=== PATIENT | male | born 1950 | race Caucasian/White ===

== ENCOUNTER 2018-01-17 10:37 | Emergency (ER) | payer SELFPAY ==
[2018-01-17 10:37] VITALS: BP 136/79; PULSE 108; RESP 26; TEMP 37.2; O2SAT 90; BMI 29.8
--- NOTE | 2018-01-17 10:57 | ED.VISSUMM ---
- ER Visit Summary Date of Service: 01/17/18 Chief Complaint: [] Runny nose and a harsh cough for about 4 days History of Present Illness: The patient is a 67 M [] hypertension, reports for 4 days she has had a copiously runny nose and a harsh cough no fever no chest pain no abdominal pain able to eat and drink no orthopnea or PND he denies history of [place] PE DVT or COPD although he does smoke he is really only on blood pressure medicine he has been doing fine at home Physical Examination: [] Very harsh dry cough here his nose is quite congested he is in no distress speaking full sentences when he is not coughing the throat is unremarkable the lungs are minimal wheezing diffusely but good excursion the heart tones are unremarkable the abdomen is soft and nontender he has around abdomen but nontender he is moving all 4 extremities no orthopnea PND or leg edema cyanosis clubbing or edema or logically he is awake and alert when he is not coughing clinically he looks well Test Results: [] Emergency Department Course and Treatment: [] This time of explained the patient we can do extensive evaluation with x-rays labs etc. EKG but he declined all that he was agreeable to a DuoNeb Afrin nasal spray, he feels well wants to go home, he will be discharged on Proventil inhaler Flonase Mucinex and to follow-up with his doctor and return for change in symptoms Treatment Plan: [] Disposition: [] Home stable Impression: [] Acute URI with harsh cough This note was generated with [employer] dictation software. It may contain incorrect words, spelling, and punctuation that were not noted in review of the chart prior to signing ED Disposition - Plan for ED Patient: Chief Complaint: Shortness of Breath Referrals: Susana Ruiz, MARIANNE-C [Primary Care Provider] -
--- NOTE | 2018-01-17 10:58 | ED.DEP ---
ED Disposition - Plan for ED Patient: Chief Complaint: Shortness of Breath Instructions: ED Upper Resp Infec No Abx Tx, ED COPD Flare Prescriptions: Albuterol Inhaler [Ventolin Hfa] 2 puff INHALATION Q4H PRN PRN #1 inhaler PRN Reason: Wheezing Fluticasone 0.05% [Flonase Nasal [place]] 1 spray NASAL BID #1 bottle Guaifenesin [Mucinex] 1,200 mg PO BID #14 [id number].12hr Referrals: Susana Ruiz NP-C [Primary Care Provider] -
[2018-01-17 11:06] VITALS: PULSE 104; RESP 18
[2018-01-17] MEDS: Ipratropium/Albuterol Sulfate 3 ML AMPUL.NEB INHALATION (11:06)
[2018-01-17 11:34] VITALS: BP 140/78; PULSE 103; RESP 24; O2SAT 96
[2018-01-17] MEDS: Oxymetazoline 0.05% 1 SPRAY SPRAY.BTL 2 SPRAY NASAL (11:42)
== END 2018-01-17 11:50 | disposition home or self-care (01) ==
PROVIDERS: Emergency Provider Emergency Medicine; Family Provider Nurse Practitioner Primary Care; PCP Nurse Practitioner Primary Care
DX: J06.9 Acute upper respiratory infection, unspecified (principal); R05 Cough; F17.200 Nicotine dependence, unspecified, uncomplicated; I10 Essential (primary) hypertension; E11.9 Type 2 diabetes mellitus without complications; Z79.84 Long term (current) use of oral hypoglycemic drugs; Z79.899 Other long term (current) drug therapy
CPT/HCPCS: 94640; 99281

== ENCOUNTER 2018-05-11 14:49 | Observation (INO) | payer MEDICARE, OTHER, SELFPAY ==
[2018-05-11] VITALS (9 sets, daily range): BP systolic 121–164; BP diastolic 74–87; PULSE 65–95; RESP 18–20; TEMP 36.4–36.6; O2SAT 94–97; BMI 32.8; BMI 32.1
--- NOTE | 2018-05-11 15:00 | EKG12_ITS ---
Test Reason : Blood Pressure : / mmHG Vent. Rate : 083 BPM Atrial Rate : 083 BPM P-R Int : 132 ms QRS Dur : 104 ms QT Int : 374 ms P-R-T Axes : 058 046 056 degrees QTc Int : 439 ms Normal sinus rhythm Incomplete right bundle branch block Borderline ECG Confirmed by AKBAR OZUNA, MARINE ([id number]), business editor SEAN MANDUJANO ([id number]) on 05/13/2018 4:18:14 PM Referred By: EVARISTO Confirmed By:MARINE WEBBER MD
--- NOTE | 2018-05-11 15:04 | ED.DCSUM_ITS ---
- ER Visit Summary Date of Service: 05/11/18 Chief Complaint: Chest pain, nausea, diaphoresis History of Present Illness: The patient is a 67 M with history of diabetes, hypertension, hyperlipidemia, and smoking presents to the emergency department chest pain, nausea, diaphoresis. Normal state of health. He states that Gigi night, he began to feel sick. He states that he was very nauseated. He states he had a few bouts of vomiting. Since then, he has had intermittent bouts of chest pain. He describes it as a heaviness in his left chest that goes into his arm. He states that he does get very diaphoretic with it. He is unsure if it is made worse with exertion. He does get short of breath. He has had intermittent pain in his midepigastric area also. It does seem to be worse with food. He states he has never had symptoms like this before. He does not that he had fever. He has no documented history of coronary vascular disease. Physical Examination: Vital signs reviewed General: Well-nourished, well-developed Head: Normocephalic, atraumatic Eyes: Pupils equal and reactive, extraocular muscles intact Neck, supple, no lymphadenopathy Heart: Regular rate and rhythm Respiratory: No distress, clear bilaterally Abdomen: Soft, nontender, nondistended, no peritoneal signs Back: Nontender Extremities: Nontender, no edema, no cords Skin: Normal color no rash Neuro: Alert and oriented, no focal or lateralizing deficits Test Results: [] Emergency Department Course and Treatment: The patient presents to the emergency department with chest pain. He has multiple history of coronary vascular disease. His EKG does not show evidence of acute ischemia. Patient was given nitro and was totally pain-free. His screening labs including cardiac enzymes were unremarkable. His x-ray shows no volume overload or other dangerous process. He continues to remain pain-free. At this time, I do feel that the patient will require admission for cardiac workup. Patient was discussed with the hospitalist and will be admitted. Treatment Plan: [] Disposition: Admission Impression: 1. Chest pain This note was generated with [employer] dictation software. It may contain incorrect words, spelling, and punctuation that were not noted in review of the chart prior to signing ED Disposition - Plan for ED Patient: Chief Complaint: Chest Pain Referrals: Susana Ruiz NP-C [Primary Care Provider] -
--- NOTE | 2018-05-11 15:05 | RAD_ITS ---
STUDY: X-RAY CHEST REASON FOR EXAM: Male, 67 years old. Diaphoresis. Intermittent chest pain. TECHNIQUE: Single AP portable view of the chest. COMPARISON: Comparison is made with prior study February 14, 2017. FINDINGS: EKG electrodes are seen. The lungs are clear and expanded. There is no demonstrated pleural abnormality. Normal size heart. Normal mediastinum and kelli. Normal visualized pulmonary arteries. Normal visualized aortic arch and descending thoracic aorta. There are diffuse degenerative changes of the visualized thoracic spine. Normal visualized ribs, clavicles, and shoulders. There is no demonstrated abnormality of the visualized soft tissue structures of the upper abdomen. RAD/Chest 1 View (Portable) IMPRESSION: No acute abnormality is present. Electronically Signed: Doc Trimble MD at 15:38 EST Tel [phone], Service support ,
[2018-05-11] MEDS: Aspirin 81 MG TAB.CHEW 324 MG PO (15:16)
[2018-05-11] MEDS: Ondansetron 4 MG/2 ML Vial IV (15:19)
[2018-05-11] MEDS: 0.9% Normal Saline 1,000 ML 150 ML IV (15:20)
[2018-05-11 15:24] LABS: Absolute Neutrophil Count 4.2 X10^3/uL (2.0-7.7); Basophil# 0.17 X10^3/uL; Basophil% 2.1 % (0-1); Eosinophil# 0.25 X10^3/uL; Eosinophils% 3.1 % (0-5); Hematocrit 48.5 % (40-54); Hemoglobin 16.3 g/dl (13.0-16.5); Lymphocyte % 35.5 % (19-41); Mean Corp Hgb Conc 33.6 g/gl (32-36); Mean Corpuscular Hgb 30.5 pg (27.0-32.0); Mean Corpuscular Volume 90.8 fL (80-94); Mean Platelet Vol. 10.5 fl (6.2-12.0); Monocyte% 7.3 % (0-10); Neutrophil # 4.19 X10^3/uL (2.7-7.7); Neutrophil % 51.3 % (47-70); Platelet Count 241 K/mm3 (150-450); RBC Distribution Width CV 12.7 % (11.6-14.6); RBC Distribution Width SD 42.2 fl (35.1-43.9); Red Blood Count 5.34 M/mm3 (4.6-6.2); White Blood Count 8.2 K/mm3 (4.4-11.0)
[2018-05-11 15:32] LABS: POSITIVE COUNT NO; POSITIVE DIFFERENTIAL NO; POSITIVE MORPHOLOGY NO
[2018-05-11 15:40] LABS: AST(SGOT) 12 U/L (15-37); Alanine Aminotransfer ALT/SGPT 23 U/L (16-61); Albumin, Serum 3.9 g/dL (3.2-5.0); Alkaline Phosphatase 87 U/L (45-117); Anion Gap 7 (5-15); BUN 23 mg/dL (7-18); BUN/Creat Ratio 23.9 RATIO (10-20); Bilirubin, Direct 0.12 mg/dL (0.00-0.30); Calcium,Total 8.9 mg/dL (8.5-10.1); Chloride 104 mmol/L (98-107); Creatinine, Serum 0.96 mg/dL (0.70-1.30); EST Glomerular Filtration Rate 83 mL/min (>60); Est Glom Filt Rate - Afr Amer 100 mL/min (>60); Estimated Creatinine Clearance 69.23 ml/min; Glucose 213 mg/dL (74-106); Lipase 107 U/L (73-393); Potassium 3.6 mmol/L (3.5-5.1); Protein, Total 7.9 g/dL (6.4-8.2); Sodium Level 138 mmol/L (136-145)
--- NOTE | 2018-05-11 19:47 | EKG12_ITS ---
Test Reason : Blood Pressure : / mmHG Vent. Rate : 074 BPM Atrial Rate : 074 BPM P-R Int : 102 ms QRS Dur : 094 ms QT Int : 378 ms P-R-T Axes : 026 031 040 degrees QTc Int : 419 ms Sinus rhythm Incomplete right bundle branch block Borderline ECG Confirmed by AKBAR OZUNA, MARINE ([id number]), research editor SEAN MANDUJANO ([id number]) on 05/13/2018 3:34:45 PM Referred By: MISHA Confirmed By:MARINE WEBBER MD
--- NOTE | 2018-05-11 19:56 | HP.PCM_ITS ---
Problem List (1) COPD (chronic obstructive pulmonary disease) Status: Chronic (2) Diabetes mellitus type 2 in obese Status: Acute (3) Acute chest pain Status: Acute (4) Tobacco dependence Status: Chronic (5) Hyperglycemia, unspecified Status: Acute History of Present Illness Date of Admission: 05/11/18 Chief Complaint: Atypical chest pain The patient is a 67 year old M with history of diabetes mellitus type 2 on metformin, hypertension, dyslipidemia came to ER for atypical chest pain for last 2 days. Patient had a large meal on and then had nausea and vomiting only gastric type without GI bleed. After that, he had more pain and dyspeptic symptoms. On past Friday he felt epigastric and lower chest pain midsternal, radiating to back and numbness to both hands. Patient denies any exacerbating or relieving factor. Described chest pain as more like burning, la sting for about 15 seconds, intermittent with multiple episodes. He had associated symptoms of diaphoresis. He has chronic shortness of breath secondary to COPD. [] Had Lexiscan stress test done in February 2017 and was negative for stress- induced ischemia. In ED, chest x-ray showed no acute abnormality. EKG shows normal sinus rhythm with incomplete right bundle branch block, QRS 94 ms. Clinical Impression(s) from Imaging Studies Chest X-Ray 05/11/18 15:05 IMPRESSION: No acute abnormality is present. Past Medical History Past Medical History (Chronic Problems): Chronic Problems COPD (chronic obstructive pulmonary disease) (Chronic) Tobacco dependence (Chronic) Allergies morphine Allergy (Verified 05/11/18 14:50) Rash Home Medications: Ambulatory Orders Medication Instructions Recorded Albuterol Inhaler [Ventolin Hfa] 2 puff INHALATION Q4H PRN PRN #1 01/17/18 inhaler Atorvastatin Calcium [Lipitor] 20 mg PO QHS 01/17/18 Fluticasone 0.05% [Flonase Nasal 1 spray NASAL BID #1 bottle 01/17/18 [place]] Lisinopril [Zestril] 10 mg PO DAILY 01/17/18 Metformin HCl [Glucophage] 500 mg PO DAILY 01/17/18 Aspirin E.C. [Ecotrin] 81 mg PO DAILY 05/11/18 Erythromycin Base [Erythromycin] 1 applic LEFT EYE DAILY 05/11/18 Guaifenesin [Mucinex] 1,200 mg PO BID 05/11/18 Meloxicam [Mobic] 7.5 mg PO DAILY PRN PRN 05/11/18 Nitroglycerin 0.4 mg PO PRN PRN 05/11/18 Smoking Status: Current every day smoker Tobacco Use: Cigarettes - *Family History Maternal History Items: No pertinent history Paternal History Items: Stroke Sibling History Items: Cancer Review of Systems Constitutional: Denies: Chills, Fever, Weight Change HEENT: Denies: Head Aches, Sinus Congestion, Sinus Drainage Cardiovascular: Reports: Chest Pain. Denies: Palpitations Respiratory: Reports: Cough - Chronic COPD cough occasionally, Shortness of breath upon exertion. Denies: Shortness of breath at rest, Sputum production Gastrointestinal: Reports: Abdominal Pain, Nausea, Vomiting Genitourinary: Denies: Dysuria Musculoskeletal: Denies: Joint Pain, Joint Tenderness Skin: Denies: Rash, Wounds Neurological: Denies: Numbness, Tingling, Focal weakness Psychiatric: Denies: Anxiety, Depression, Homicidal Ideations, Suicidal Ideations Hematologic/ Lymphatic: Denies: Easy Bruising, Easy Bleeding VTE Information - Inpt Only VTE Present on Admission: No VTE Mechan Device Prophylaxis: None VTE Pharm Prophylaxis ordered?: Yes Patient Problems: Active and Suspected Problems Diabetes mellitus type 2 in obese (Acute) - Physical Exam General: Alert, Oriented x3, Cooperative HEENT: Atraumatic, PERRLA, EOMI, Normocephalic Neck: Supple, No JVD, Negative Carotid Bruits Lungs: No rales, Diminished - Air entry diminished bilaterally., Rhonchi - Bilateral fine expiratory rhonchi present Cardiovascular: Regular rate, Regular Rhythm, Normal S1, Normal S2, No murmurs Abdomen: Bowel Sounds Present, Soft, Non Tender, Non-Distended Extremities: No edema, Capillary Refill Less than 3 Seconds Skin: No rashes, No breakdown Musculoskeletal: No Tenderness to Palpation of Joints or Extremities, Arthritic Changes Neurological: Cranial nerves II-XII grossly intact Psych/Mental Status: Normal Affect, Appropriate Vital Signs Temp Pulse Resp BP Pulse Ox 97.9 F 74 20 H 121/74 H 95 05/11/18 17:16 05/11/18 19:17 05/11/18 17:24 05/11/18 17:16 05/11/18 17:16 Oxygen Delivery Method Room Air Weight: 198 lb 13.711 oz Body Mass Index (BMI) 32.1 Intake and Output for Last 24 Hours 05/09/18 05/10/18 05/11/18 23:59 23:59 23:59 Intake Total 240 / 240 Balance 240 / 240 Laboratory Tests Past 24 Hrs 05/11/18 05/11/18 05/11/18 15:20 15:20 18:53 WBC 8.2 RBC 5.34 Hgb 16.3 Hct 48.5 MCV 90.8 MCH 30.5 MCHC 33.6 RDW 12.7 RDW Differential 42.2 Plt Count 241 MPV 10.5 Immature Gran % (Auto) 0.700 Neut % (Auto) 51.3 Lymph % (Auto) 35.5 Irion % (Auto) 7.3 Eos % (Auto) 3.1 Baso % (Auto) 2.1 H Absolute Neuts (auto) 4.2 Absolute Lymphs (auto) 2.90 Total Counted Not Reportable Sodium 138 Potassium 3.6 Chloride 104 Carbon Dioxide 27.0 Anion Gap 7 BUN 23 H Creatinine 0.96 Estim Creat Clear Calc 69.23 Est GFR (MDRD) Af Amer 100 Est GFR (MDRD) Non-Af 83 BUN/Creatinine Ratio 23.9 H Glucose 213 H Calcium 8.9 Magnesium 2.0 Total Bilirubin 0.40 Direct Bilirubin 0.12 AST 12 L ALT 23 Alkaline Phosphatase 87 Troponin I < 0.015 Pending Total Protein 7.9 Albumin 3.9 Globulin 4.0 Lipase 107 Assessment/Plan All Active Problems Diabetes mellitus type 2 in obese (Acute) Acute chest pain (Acute) Hyperglycemia, unspecified (Acute) The patient is a 67 year old M with history of diabetes mellitus type 2 on metformin, hypertension, dyslipidemia came to ER for atypical chest pain for last 2 days. Patient had a large meal on and then had nausea and vomiting only gastric type without GI bleed. After that, he had more pain and dyspeptic symptoms. On past Friday he felt epigastric and lower chest pain midsternal, radiating to back and numbness to both hands. Patient denies any exacerbating or relieving factor. Described chest pain as more like burning, lasting for about 15 seconds, intermittent with multiple episodes. He had associated symptoms of diaphoresis. He has chronic shortness of breath secondary to COPD. [] Had Lexiscan stress test done in February 2017 and was negative for stress- induced ischemia. In ED, chest x-ray showed no acute abnormality. EKG shows normal sinus rhythm with incomplete right bundle branch block, QRS 94 ms. 1. Atypical chest pain probably dyspeptic symptoms/gastric in nature; rule out ACS: Patient is being admitted on PCU. Serial troponin enzymes. Repeat EKG. If troponin negative, Lexiscan nuclear stress test tomorrow morning. Continue baby aspirin, atorvastatin and lisinopril, nitro sublingual as needed for chest pain. 2. COPD: Patient is on albuterol inhaler, Mucinex at home. DuoNeb as needed. Not on home oxygen. Chest x-ray did not show acute abnormality. 3. Probably, acute gastroenteritis/indigestion about 3-4 days ago: Resolved. 4 Diabetes mellitus type 2: Glucose and BMP 213. A1c tomorrow a.m. Accu-Cheks before meals and at bedtime and cover with Humalog insulin. 5. Hypertension: Blood pressure is controlled. DVT prophylaxis: On Lovenox 40 minutes subcu daily. This note was generated with [employer] dictation software. Every effort was made to ensure accuracy, however computerized oscillograph technician mistakes may persist. clinical Impression(s) from Imaging Studies Chest X-Ray 05/11/18 15:05 IMPRESSION: No acute abnormality is present. Laboratory Results 05/11/18 15:20: WBC 8.2, RBC 5.34, Hgb 16.3, Hct 48.5, MCV 90.8, MCH 30.5, MCHC 33.6, RDW 12.7, RDW Differential 42.2, Plt Count 241, MPV 10.5, Immature Gran % (Auto) 0.700, Neut % (Auto) 51.3, Lymph % (Auto) 35.5, Irion % (Auto) 7.3, Eos % (Auto) 3.1, Baso % (Auto) 2.1 H, Absolute Neuts (auto) 4.2, Absolute Lymphs (auto) 2.90, Total Counted Not Reportable 05/11/18 15:20: Sodium 138, Potassium 3.6, Chloride 104, Carbon Dioxide 27.0, Anion Gap 7, BUN 23 H, Creatinine 0.96, Estim Creat Clear Calc 69.23, Est GFR (MDRD) Af Amer 100, Est GFR (MDRD) Non-Af 83, BUN/Creatinine Ratio 23.9 H, Glucose 213 H, Calcium 8.9, Magnesium 2.0, Total Bilirubin 0.40, Direct Bilirubin 0.12, AST 12 L, ALT 23, Alkaline Phosphatase 87, Troponin I < 0.015, Total Protein 7.9, Albumin 3.9, Globulin 4.0, Lipase 107 05/11/18 18:53: Troponin I < 0.015 Code Visit OBSV E&M: 99994 Initial observation care L3
[2018-05-11] MEDS: Enoxaparin 40 MG/0.4 ML Syringe SC (21:30)
[2018-05-11] MEDS: Atorvastatin Calcium 40 MG Tablet PO (21:30)
[2018-05-11 22:15] LABS: Bedside Glucose 129 mg/dL (70-110)
[2018-05-11] MEDS: 0.9% Normal Saline 1,000 ML 100 ML IV (23:41)
[2018-05-12] VITALS (7 sets, daily range): BP systolic 128–153; BP diastolic 73–86; PULSE 61–73; RESP 17–18; TEMP 36.3–36.7; O2SAT 94–98
[2018-05-12] MEDS: Aspirin E.C. 81 MG Tablet PO (05:38)
[2018-05-12] MEDS: Lisinopril 10 MG Tablet PO (05:38)
--- NOTE | 2018-05-12 05:55 | EKG12_ITS ---
Test Reason : AM EKG Blood Pressure : / mmHG Vent. Rate : 064 BPM Atrial Rate : 064 BPM P-R Int : 132 ms QRS Dur : 090 ms QT Int : 386 ms P-R-T Axes : 031 041 049 degrees QTc Int : 398 ms Normal sinus rhythm Normal ECG Confirmed by AKBAR OZUNA, MARINE ([id number]), magazine editor SEAN MANDUJANO ([id number]) on 05/13/2018 3:31:11 PM Referred By: DR CABRAL Confirmed By:MARINE WEBBER MD
[2018-05-12 07:00] LABS: Bedside Glucose 139 mg/dL (70-110)
[2018-05-12 07:03] LABS: Hematocrit 50.2 % (40-54); Hemoglobin 16.4 g/dl (13.0-16.5); Mean Corp Hgb Conc 32.7 g/gl (32-36); Mean Corpuscular Hgb 30.5 pg (27.0-32.0); Mean Corpuscular Volume 93.3 fL (80-94); Mean Platelet Vol. 10.2 fl (6.2-12.0); Platelet Count 228 K/mm3 (150-450); RBC Distribution Width SD 44.5 fl (35.1-43.9); Red Blood Count 5.38 M/mm3 (4.6-6.2); White Blood Count 7.6 K/mm3 (4.4-11.0)
[2018-05-12 07:12] LABS: Scan Indicated on CBC? Y/N NO
[2018-05-12 07:14] LABS: Anion Gap 5 (5-15); BUN 18 mg/dL (7-18); BUN/Creat Ratio 19.8 RATIO (10-20); Calcium,Total 8.5 mg/dL (8.5-10.1); Chloride 109 mmol/L (98-107); Creatinine, Serum 0.91 mg/dL (0.70-1.30); EST Glomerular Filtration Rate 89 mL/min (>60); Est Glom Filt Rate - Afr Amer 108 mL/min (>60); Estimated Creatinine Clearance 73.03 ml/min; Glucose 121 mg/dL (74-106); Potassium 4.5 mmol/L (3.5-5.1); Sodium Level 142 mmol/L (136-145)
[2018-05-12 07:26] LABS: Prothrombin Time (Protime)PT. 13.3 SECONDS (11.7-14.9)
[2018-05-12 07:27] LABS: Cholesterol 143 mg/dL (200); High Density Lipoprotein 39 mg/dL; Partial Thromboplast Time 30.5 Seconds (24.1-36.2); Thyroid Stim Hormone (TSH) 0.91 uIU/mL (0.358-3.74); Triglycerides 173 mg/dL; Very Low Density Lipoprotein 35 mg/dL (5-40)
[2018-05-12 07:57] LABS: Hemoglobin A1c 6.4 % (4.2-6.3)
[2018-05-12 11:41] LABS: Bedside Glucose 95 mg/dL (70-110)
--- NOTE | 2018-05-12 11:43 | STRESSREP ---
Stress Test Report Date: 05/12/2018 Procedure: Pharmacologic stress nuclear imaging study Indications: Chest pain Consent: Per the patient Procedure: The patient underwent pharmacologic (Regadenoson) evaluation with a peak heart rate of 97 beats per minute (62 predicted maximal heart rate) and a peak blood pressure of 136/82 mmHg. The baseline ECG demonstrated normal sinus rhythm. The peak pharmacologic ECG demonstrated no obvious ECG changes. There were no cardiac dysrhythmias pretest, during pharmacologic infusion, or recovery. There was no complaint of chest discomfort during pharmacologic infusion or recovery. The examination was discontinued secondary to completion of protocol. Impression: 1. Pharmacologic (Regadenoson) evaluation 2. Peak pharmacologic ECG with no obvious ECG changes. 3. There were no cardiac dysrhythmias pretest, during pharmacologic infusion, or recovery. 4. Nuclear images pending Myocardial perfusion imaging study: Technique: The patient was injected with 11.8 millicuries of technetium 99m Cardiolite and subsequently rest SPECT Cardiolite nuclear imaging was obtained in the horizontal long, vertical long, and short axis views. The patient underwent pharmacologic (Regadenoson) evaluation with a peak heart rate of 97 beats per minute (62 % percent predicted maximal heart rate) and a peak blood pressure of 136/82 mmHg. The patient was injected with 34.1 millicuries of technetium 99m Cardiolite and subsequently stress SPECT Cardiolite nuclear imaging was obtained in the horizontal long, vertical long, and short axis views. A gated Cardiolite study at peak stress was obtained. Interpretation: Rest and stress SPECT Cardiolite nuclear imaging status post realignment, normalization, and attenuation correction demonstrate area of extra cardiac/gastrointestinal tracer uptake and otherwise myocardial perfusion appearing within normal limits. There is end systolic thickening and brightening. The gated Cardiolite study demonstrates myocardial thickening and inward wall motion. The reported LVEF is 72 %. Impression: 1. Rest and stress SPECT Cardiolite nuclear imaging demonstrate relative uniform tracer uptake and myocardial perfusion appearing within normal limits. 2. The gated Cardiolite study reports an LVEF of 72 %. This note was generated with [employer] software. It may contain incorrect words, spelling, and punctuation that were not noted in checking the note before signing.
--- NOTE | 2018-05-12 11:47 | STRESSREP_ITS ---
Stress Test Report Date: 05/12/2018 Procedure: Pharmacologic stress nuclear imaging study Indications: Chest pain Consent: Per the patient Procedure: The patient underwent pharmacologic (Regadenoson) evaluation with a peak heart rate of 97 beats per minute (62 predicted maximal heart rate) and a peak blood pressure of 136/82 mmHg. The baseline ECG demonstrated normal sinus rhythm. The peak pharmacologic ECG demonstrated no obvious ECG changes. There were no cardiac dysrhythmias pretest, during pharmacologic infusion, or recovery. There was no complaint of chest discomfort during pharmacologic infusion or recovery. The examination was discontinued secondary to completion of protocol. Impression: 1. Pharmacologic (Regadenoson) evaluation 2. Peak pharmacologic ECG with no obvious ECG changes. 3. There were no cardiac dysrhythmias pretest, during pharmacologic infusion, or recovery. 4. Nuclear images pending Myocardial perfusion imaging study: Technique: The patient was injected with 11.8 millicuries of technetium 99m Cardiolite and subsequently rest SPECT Cardiolite nuclear imaging was obtained in the horizontal long, vertical long, and short axis views. The patient underwent pharmacologic (Regadenoson) evaluation with a peak heart rate of 97 beats per minute (62 % percent predicted maximal heart rate) and a peak blood pressure of 136/82 mmHg. The patient was injected with 34.1 millicuries of technetium 99m Cardiolite and subsequently stress SPECT Cardiolite nuclear imaging was obtained in the horizontal long, vertical long, and short axis views. A gated Cardiolite study at peak stress was obtained. Interpretation: Rest and stress SPECT Cardiolite nuclear imaging status post realignment, normalization, and attenuation correction demonstrate area of extra cardiac/gastrointestinal tracer uptake and otherwise myocardial perfusion appearing within normal limits. There is end systolic thickening and brightenin g. The gated Cardiolite study demonstrates myocardial thickening and inward wall motion. The reported LVEF is 72 %. Impression: 1. Rest and stress SPECT Cardiolite nuclear imaging demonstrate relative uniform tracer uptake and myocardial perfusion appearing within normal limits. 2. The gated Cardiolite study reports an LVEF of 72 %. This note was generated with [employer] software. It may contain incorrect words, spelling, and punctuation that were not noted in checking the note before signing.
--- NOTE | 2018-05-12 11:58 | DCINST_ITS ---
- Discharge Diagnoses Current Active Problems: Current Active and Chronic Problems COPD (chronic obstructive pulmonary disease) (Chronic) Diabetes mellitus type 2 in obese (Acute) You will use the following diet at home:: Calorie/Carbohydrate Controlled (specify 1200, 1400, etc) - 1800 guido Your food should be the consistency of: Regular Your liquids should be the consistency of: Regular/Thin Discharge Activity: Return to Normal Activity Weight Bearing Status: Full weight bearing Allergies/Adverse Reactions: Allergies morphine Allergy (Verified 05/11/18 14:50) Rash Medications to take at Discharge Albuterol Inhaler [Ventolin Hfa] 2 puff INHALATION Q4H PRN PRN #1 inhaler 01/17/18 Atorvastatin Calcium [Lipitor] 20 mg PO QHS 01/17/18 Fluticasone 0.05% [Flonase Nasal [place]] 1 spray NASAL BID #1 bottle 01/17/18 Lisinopril [Zestril] 10 mg PO DAILY 01/17/18 Metformin HCl [Glucophage] 500 mg PO DAILY 01/17/18 Aspirin E.C. [Ecotrin] 81 mg PO DAILY 05/11/18 Erythromycin Base [Erythromycin] 1 applic LEFT EYE DAILY 05/11/18 Guaifenesin [Mucinex] 1,200 mg PO BID 05/11/18 Meloxicam [Mobic] 7.5 mg PO DAILY PRN PRN 05/11/18 Nitroglycerin 0.4 mg PO PRN PRN 05/11/18 Primary Care Physician: Susana Ruiz NP-C [Primary Care Provider] - Please follow up with your Primary Care Physician in: in one week Test Results: Test results from this visit will be discussed in further detail at your follow- up appointment, if applicable.
[2018-05-12] MEDS: Fluticasone 0.05% 1 SPRAY NASAL.SRY NASAL (12:53)
[2018-05-12] MEDS: guaiFENesin 1,200 MG Tablet 1200 MG PO (12:54)
--- NOTE | 2018-05-14 14:35 | DS.PCM_ITS ---
Discharge Date and Diagnosis Date of Admission: 05/11/18 Date of Discharge: 05/12/18 - Primary Discharge Diagnosis #1 musculoskeletal chest pain #2 type 2 diabetes #3 hyperlipidemia #4 COPD - Secondary Discharge Diagnosis Chronic Problems COPD (chronic obstructive pulmonary disease) (Chronic) Tobacco dependence (Chronic) Hospital Course and Treatment Operations: None Procedures: Nuclear stress test Summary of Care Provided: The patient is a 67 year old M was seen in the emergency room at [facility] with a chief complaint of chest pain accompanied by diaphoresis and nausea and diaphoresis. Workup in the emergency room included cardiac enzymes which were unremarkable, chest x-ray showed no acute disease, the remainder of his labs were also unremarkable. EKG does not show any evidence of ischemic changes, he was in normal sinus rhythm. Patient was placed in observation status on PCU, serial cardiac enzymes were obtained and these remained normal, patient underwent a nuclear stress test which was negative for reversible ischemia. Physical exam on 05/12/18: On examination he appeared in good health and spirits. Vital signs as documented. Skin warm and dry and without overt rashes. Neck without JVD. Lungs clear. Heart exam notable for regular rhythm, normal sounds and absence of murmurs, rubs or gallops. Abdomen unremarkable and without evidence of organomegaly, masses, or abdominal aortic enlargement. Extremities nonedematous. Neuro: Cranial nerves II through XII are grossly intact, no focal motor deficits were noted. Psych: Patient was alert and oriented x3, he did not appear anxious or depressed. On 05/12/18, patient was seen and examined felt to be in stable condition for discharge home - Physical Exam Vital Signs Temp Pulse Resp BP Pulse Ox 97.4 F L 61 18 153/86 H 98 05/12/18 13:00 05/12/18 13:00 05/12/18 13:00 05/12/18 13:00 05/12/18 13:00 Oxygen Delivery Method Room Air Weight: 90.2 kg Body Mass Index (BMI) 32.1 Intake and Output for Last 24 Hours 05/12/18 05/13/18 05/14/18 23:59 23:59 23:59 Intake Total 1815 181 Balance 1815 Discharge Activity: Return to Normal Activity Weight Bearing Status: Full weight bearing Home Medications: Medications to take at Discharge Albuterol Inhaler [Ventolin Hfa] 2 puff INHALATION Q4H PRN PRN #1 inhaler 01/17/18 Atorvastatin Calcium [Lipitor] 20 mg PO QHS 01/17/18 Fluticasone 0.05% [Flonase Nasal [place]] 1 spray NASAL BID #1 bottle 01/17/18 Lisinopril [Zestril] 10 mg PO DAILY 01/17/18 Metformin HCl [Glucophage] 500 mg PO DAILY 01/17/18 Aspirin E.C. [Ecotrin] 81 mg PO DAILY 05/11/18 Erythromycin Base [Erythromycin] 1 applic LEFT EYE DAILY 05/11/18 Guaifenesin [Mucinex] 1,200 mg PO BID 05/11/18 Meloxicam [Mobic] 7.5 mg PO DAILY PRN PRN 05/11/18 Nitroglycerin 0.4 mg PO PRN PRN 05/11/18 Primary Care Physician: Susana Ruiz NP-C [Primary Care Provider] - Please follow up with your Primary Care Physician in: in one week Disposition: Home Minutes spent on discharge:: 32 Patient Condition:: Stable Medical Necessity - Tobacco Use Smoking Status: Current every day smoker Tobacco Use: Cigarettes Meaningful Use Info Meaningful Use Diagnoses (Choose all that apply): None applicable Code Visit OBSV E&M: 92575 Observation care discharge
--- OUTSIDE RECORDS SUMMARY | 2018-06-23 14:03 | XMS RPT_ITS ---
:1950 Author Organization OHIP Care Team Providers Name Role Phone AL VELIZ, MR. PRECIADO Attending Unavailable AL VELIZ, MR. PRECIADO Primary Care Unavailable GUIDO ALCALA, MS. MARIPOSA Sandoval Attending Unavailable AL VELIZ, MR. PRECIADO Primary Care Unavailable GUIDO ALCALA, MSGwyn Sandoval Attending Unavailable AL VELIZ, MR. PRECIADO Primary Care Unavailable YOMAIRA REESE Attending Unavailable AL VELIZ, MR. PRECIADO Primary Care Unavailable Samson Webber Attending Unavailable Misha, Ritesh Referring Unavailable Samson Webber Attending Unavailable Misha, Ritesh Referring Unavailable Latasha June Attending Unavailable Mariposa Ruiz MUTUEL DEPARTMENT MANAGER-C Primary Care Unavailable Mariposa Ruiz MUTUEL DEPARTMENT MANAGER-C Primary Care Unavailable Misha, Ritesh Admitting Unavailable Fermin Marin Attending Unavailable Misha, Ritesh Admitting Unavailable Misha, Ritesh Attending Unavailable Mariposa Ruiz MUTUEL DEPARTMENT MANAGER-C Primary Care Unavailable Misha, Ritesh Consulting Unavailable Misha, Ritesh Admitting Unavailable Fermin Marin Attending Unavailable Mariposa Ruiz MUTUEL DEPARTMENT MANAGER-C Primary Care Unavailable Tereletsky, Fermin Consulting Unavailable PROBLEMS PROBLEMS DATE TYPE CONDITION / CODE ATTENDING STATUS SOURCE 05/29/2018 Unknown R07.9 - Chest Samson Webber Active [facility] pain, unspecified Community / R07.9(ICD-10) Hospital Repository 05/29/2018 Unknown R07.89 - Other Samson Webber Active [facility] chest pain / Community R07.89(ICD-10) Hospital Repository 05/29/2018 Unknown I10 - Essential Samson Webber Active [facility] (primary) Community hypertension / Hospital I10(ICD-10) Repository PROCEDURES PROCEDURES No Procedure Records FoundRESULTS RESULTS 12 LEAD ELECTROCARDIOGRAM Observed: 05/15/2018 Status: F Source: [place] 9:27 AM [facility] REPOSITORY [facility] Cardiovascular Services [address] [place] [address] 12 Lead EKG 05/12/18 0543 MR#: [id number] Acct: [id number] Name: DOMINIK YEE Rep #: [id number] : 1950 67 From: Samson Webber MD Attending Dr: Fermin Marin DO Status: DIS YASMINE Ordering Dr: Ritesh Cabral MD Date: 05/12/18 Location: [facility] Sex: M C Admitted: 05/11/18 Test Reason : AM EKG Blood Pressure : / mmHG Vent. Rate : 064 BPM Atrial Rate : 064 BPM P-R Int : 132 ms QRS Dur : 090 ms QT Int : 386 ms P-R-T Axes : 031 041 049 degrees QTc Int : 398 ms Normal sinus rhythm Normal ECG Confirmed by SAMSON WEBBER MD ([id number]), assignment desk editor SEAN MANDUJANO ([id number]) on 05/13/2018 3:31:11 PM Referred By: DR CABRAL Confirmed By:SAMSON WEBBER MD 05/13/18 1531 Date Samson Webber MD CC: Mariposa CHACON; Fermin Marin DO; Ritesh Cabral MD Signed 12 LEAD ELECTROCARDIOGRAM Observed: 05/15/2018 Status: F Source: [place] 9:27 AM [facility] REPOSITORY [facility] Cardiovascular Services [address] [place] [address] 12 Lead EKG 05/11/18 1648 MR#: [id number] Acct: [id number] Name: DOMINIK YEE Rep #: [id number] : 1950 67 From: Samson Webber MD Attending Dr: Fermin Marin DO Status: DIS YASMINE Ordering Dr: Ritesh Cabral MD Date: 05/11/18 Location: [facility] Sex: M C Admitted: 05/11/18 Test Reason : Blood Pressure : / mmHG Vent. Rate : 074 BPM Atrial Rate : 074 BPM P-R Int : 102 ms QRS Dur : 094 ms QT Int : 378 ms P-R-T Axes : 026 031 040 degrees QTc Int : 419 ms Sinus rhythm Incomplete right bundle branch block Borderline ECG Confirmed by AKBAR OZUNA, SAMSON ([id number]), assignment desk editor SEAN MANDUJANO ([id number]) on 05/13/2018 3:34:45 PM Referred By: MISHA Confirmed By:SAMSON WEBBER MD 05/13/18 1534 Date Samson Webber MD CC: Mariposa CHACON; Fermin Marin DO; Ritesh Cabral MD Signed 12 LEAD ELECTROCARDIOGRAM Observed: 05/15/2018 Status: F Source: [place] 9:27 AM [facility] REPOSITORY [facility] Cardiovascular Services [address] [place] [address] 12 Lead EKG 05/11/18 1506 MR#: [id number] Acct: [id number] Name: DOMINIK YEE Rep #: [id number] : 1950 67 From: Samson Webber MD Attending Dr: Fermin Marin DO Status: DIS YASMINE Ordering Dr: Roger Kellogg MD Date: 05/11/18 Location: [facility] Sex: M C Admitted: 05/11/18 Test Reason : Blood Pressure : / mmHG Vent. Rate : 083 BPM Atrial Rate : 083 BPM P-R Int : 132 ms QRS Dur : 104 ms QT Int : 374 ms P-R-T Axes : 058 046 056 degrees QTc Int : 439 ms Normal sinus rhythm Incomplete right bundle branch block Borderline ECG Confirmed by AKBAR OZUNA, SAMSON ([id number]), assignment desk editor SEAN MANDUJANO ([id number]) on 05/13/2018 4:18:14 PM Referred By: EVARISTO Confirmed By:SAMSON WEBBER MD 05/13/18 1618 Date Samson Webber MD CC: Mariposa CHACON; Fermin Marin DO; Roger Kellogg MD Signed DISCHARGE SUMMARY Observed: 05/14/2018 Status: F Source: [place] 2:35 PM [facility] REPOSITORY [facility] Medical Records Department [address] [place] [address] Discharge Summary 05/14/18 1431 MR#: [id number] Acct: [id number] Name: DOMINIK YEE Rep #: [id number] : 1950 67 From: Fermin Marin DO PCP: Mariposa Tuttle Status: DIS YASMINE Y Location: [place] [address] Discharge Date and Diagnosis Date of Admission: 05/11/18 Date of Discharge: 05/12/18 - Primary Discharge Diagnosis #1 musculoskeletal chest pain #2 type 2 diabetes #3 hyperlipidemia #4 COPD - Secondary Discharge Diagnosis Chronic Problems COPD (chronic obstructive pulmonary disease) (Chronic) Tobacco dependence (Chronic) Hospital Course and Treatment Operations: None Procedures: Nuclear stress test Summary of Care Provided: The patient is a 67 year old M was seen in the emergency room at [facility] with a chief complaint of chest pain accompanied by diaphoresis and nausea and diaphoresis. Workup in the emergency room included cardiac enzymes which were unremarkable, chest x-ray showed no acute disease, the remainder of his labs were also unremarkable. EKG does not show any evidence of ischemic changes, he was in normal sinus rhythm. Patient was placed in observation status on U, serial cardiac enzymes were obtained and these remained normal, patient underwent a nuclear stress test which was negative for reversible ischemia. Physical exam on 05/12/18: On examination he appeared in good health and spirits. Vital signs as documented. Skin warm and dry and without overt rashes. Neck without JVD. Lungs clear. Heart exam notable for regular rhythm, normal sounds and absence of murmurs, rubs or gallops. Abdomen unremarkable and without evidence of organomegaly, masses, or abdominal aortic enlargement. Extremities nonedematous. Neuro: Cranial nerves II through XII are grossly intact, no focal motor deficits were noted. Psych: Patient was alert and oriented x3, he did not appear anxious or depressed. On 05/12/18, patient was seen and examined felt to be in stable condition for discharge home - Physical Exam Vital Signs Temp Pulse Resp BP Pulse Ox 97.4 F L 61 18 153/86 H 98 05/12/18 13:00 05/12/18 13:00 05/12/18 13:00 05/12/18 13:00 05/12/18 13:00 Oxygen Delivery Method Room Air Weight: 90.2 kg Body Mass Index (BMI) 32.1 Intake and Output for Last 24 Hours Intake Total 1816 / 1816 Balance 181 / 1816 Discharge Activity: Return to Normal Activity Weight Bearing Status: Full weight bearing Home Medications: Medications to take at Discharge Albuterol Inhaler [Ventolin Hfa] 2 puff INHALATION Q4H PRN PRN #1 inhaler 01/17/18 Atorvastatin Calcium [Lipitor] 20 mg PO QHS 01/17/18 Fluticasone 0.05% [Flonase Nasal [place]] 1 spray NASAL BID #1 bottle 01/17/18 Lisinopril [Zestril] 10 mg PO DAILY 01/17/18 Metformin HCl [Glucophage] 500 mg PO DAILY 01/17/18 Aspirin E.C. [Ecotrin] 81 mg PO DAILY 05/11/18 Erythromycin Base [Erythromycin] 1 applic LEFT EYE DAILY 05/11/18 Guaifenesin [Mucinex] 1,200 mg PO BID 05/11/18 Meloxicam [Mobic] 7.5 mg PO DAILY PRN PRN 05/11/18 Nitroglycerin 0.4 mg PO PRN PRN 05/11/18 Primary Care Physician: Mariposa Ruiz NP-C [Primary Care Provider] - Please follow up with your Primary Care Physician in: in one week Disposition: Home Minutes spent on discharge:: 32 Patient Condition:: Stable Medical Necessity - Tobacco Use Smoking Status: Current every day smoker Tobacco Use: Cigarettes Meaningful Use Info Meaningful Use Diagnoses (Choose all that apply): None applicable Code Visit OBSV EARLINE: 62992 Observation care discharge 05/14/18 1435 <Electronically signed by Fermin Marin DO> Date Fermin Marin DO Cosigner Signature (if applicable): Date CC: Mariposa CHACON; Fermin Marin DO Signed DISCHARGE INSTRUCTION Observed: 05/12/2018 Status: F Source: [place] 11:58 AM [facility] REPOSITORY [facility] Medical Records Department [address] [place] [address] Instructions for Home/Discharge Instructions 05/12/18 1157 MR#: [id number] Acct: [id number] Name: DOMINIK YEE Rep #: [id number] : 1950 67 From: Fermin Marin DO PCP: Mariposa Tuttle Status: ADM YASMINE - Discharge Diagnoses Current Active Problems: Current Active and Chronic Problems COPD (chronic obstructive pulmonary disease) (Chronic) Diabetes mellitus type 2 in obese (Acute) You will use the following diet at home:: Calorie/Carbohydrate Controlled (specify 1200, 1400, etc) - 1800 guido Your food should be the consistency of: Regular Your liquids should be the consistency of: Regular/Thin Discharge Activity: Return to Normal Activity Weight Bearing Status: Full weight bearing Allergies/Adverse Reactions: Allergies morphine Allergy (Verified 05/11/18 14:50) Rash Medications to take at Discharge Albuterol Inhaler [Ventolin Hfa] 2 puff INHALATION Q4H PRN PRN #1 inhaler 01/17/18 Atorvastatin Calcium [Lipitor] 20 mg PO QHS 01/17/18 Fluticasone 0.05% [Flonase Nasal [place]] 1 spray NASAL BID #1 bottle 01/17/18 Lisinopril [Zestril] 10 mg PO DAILY 01/17/18 Metformin HCl [Glucophage] 500 mg PO DAILY 01/17/18 Aspirin E.C. [Ecotrin] 81 mg PO DAILY 05/11/18 Erythromycin Base [Erythromycin] 1 applic LEFT EYE DAILY 05/11/18 Guaifenesin [Mucinex] 1,200 mg PO BID 05/11/18 Meloxicam [Mobic] 7.5 mg PO DAILY PRN PRN 05/11/18 Nitroglycerin 0.4 mg PO PRN PRN 05/11/18 Primary Care Physician: Mariposa Ruiz NP-C [Primary Care Provider] - Please follow up with your Primary Care Physician in: in one week Test Results: Test results from this visit will be discussed in further detail at your follow-up appointment, if applicable. 05/12/18 1158 <Electronically signed by Fermin Marin DO> Date Fermin Marin DO CC: Mariposa CHACON STRESS REPORT Observed: 05/12/2018 Status: F Source: [place] 11:47 AM [facility] REPOSITORY [facility] Cardiovascular Services [address] [place] [address] MR#: [id number] Acct: [id number] Name: DOMINIK YEE Rep #: [id number] : 1950 67 From: Samson Webber MD Primary Care: Mariposa Tuttle Status: ADM YASMINE Ordering Dr: Beatriz: Trey Ellis Stress Test Report Date: 05/12/2018 Procedure: Pharmacologic stress nuclear imaging study Indications: Chest pain Consent: Per the patient Procedure: The patient underwent pharmacologic (Regadenoson) evaluation with a peak heart rate of 97 beats per minute (62 predicted maximal heart rate) and a peak blood pressure of 136/82 mmHg. The baseline ECG demonstrated normal sinus rhythm. The peak pharmacologic ECG demonstrated no obvious ECG changes. There were no cardiac dysrhythmias pretest, during pharmacologic infusion, or recovery. There was no complaint of chest discomfort during pharmacologic infusion or recovery. The examination was discontinued secondary to completion of protocol. Impression: 1. Pharmacologic (Regadenoson) evaluation 2. Peak pharmacologic ECG with no obvious ECG changes. 3. There were no cardiac dysrhythmias pretest, during pharmacologic infusion, or recovery. 4. Nuclear images pending Myocardial perfusion imaging study: Technique: The patient was injected with 11.8 millicuries of technetium 99m Cardiolite and subsequently rest SPECT Cardiolite nuclear imaging was obtained in the horizontal long, vertical long, and short axis views. The patient underwent pharmacologic (Regadenoson) evaluation with a peak heart rate of 97 beats per minute (62 % percent predicted maximal heart rate) and a peak blood pressure of 136/82 mmHg. The patient was injected with 34.1 millicuries of technetium 99m Cardiolite and subsequently stress SPECT Cardiolite nuclear imaging was obtained in the horizontal long, vertical long, and short axis views. A gated Cardiolite study at peak stress was obtained. Interpretation: Rest and stress SPECT Cardiolite nuclear imaging status post realignment, normalization, and attenuation correction demonstrate area of extra cardiac/gastrointestinal tracer uptake and otherwise myocardial perfusion appearing within normal limits. There is end systolic thickening and brightening. The gated Cardiolite study demonstrates myocardial thickening and inward wall motion. The reported LVEF is 72 %. Impression: 1. Rest and stress SPECT Cardiolite nuclear imaging demonstrate relative uniform tracer uptake and myocardial perfusion appearing within normal limits. 2. The gated Cardiolite study reports an LVEF of 72 %. This note was generated with [employer] software. It may contain incorrect words, spelling, and punctuation that were not noted in checking the note before signing. 05/12/18 1147 <Electronically signed by Samson Webber MD> Date Samson Webber MD CC: Mariposa CHACON; Fermin Marin DO Date Dictated: 05/12/18 114 Date Transcribed: 05/12/181142 Railway Signalling Engineer: PM Signed BEDSIDE GLUCOSE Collected: 05/12/2018 Status: F Source: [place] 11:31 [facility] TYPE CODE TESTS RESULT OUT OF RANGE REFERENCE UNITS LAB L501.080 70-110 mg/dL Normal BEDSIDE GLU 95 Result Comment: MANAGEMENT OF PATIENT CARE PER NURSING PROTOCOL Performed By: #### L501.080 #### [facility] Point of Care [address] [place], [place] [address] CBC-COMPLETE BLOOD CNT Collected: 05/12/2018 Status: F Source: [place] NO DIFF 6:50 AM [facility] REPOSITORY TYPE CODE TESTS RESULT OUT OF RANGE REFERENCE UNITS LAB L100.1000 4.4-11.0 K/mm3 Normal WBC 7.6 LAB L100.1200 4.6-6.2 M/mm3 Normal RBC 5.38 LAB L100.1300 13.0-16.5 g/dl Normal HGB 16.4 LAB L100.1400 40-54 % Normal HCT 50.2 LAB L100.1500 80-94 fL Normal MCV 93.3 LAB L100.1600 27.0-32.0 pg Normal MCH 30.5 LAB L100.1700 32-36 g/gl Normal MCHC 32.7 LAB L100.1810 11.6-14.6 % Normal RDW CV 13.0 LAB L100.1820 35.1-43.9 fl High RDW SD 44.5 LAB L100.1900 150-450 K/mm3 Normal PLT 228 LAB L100.2000 6.2-12.0 fl Normal MPV 10.2 Performed By: #### L100.0500 #### [facility] [address] [place], [place], [id number] BASIC METABOLIC Collected: 05/12/2018 Status: F Source: [place] PROFILE (BMP) 6:50 AM [facility] REPOSITORY TYPE CODE TESTS RESULT OUT OF RANGE REFERENCE UNITS LAB L501.0100 74-106 mg/dL High GLU 121 Result Comment: Fasting Glucose result from 100 to 125 mg/dL suggests IMPAIRED HOMEOSTASIS per A.D.A. criteria. Please note revised GLUCOSE reference range effective 2017. LAB L501.1000 7-18 mg/dL Normal BUN 18 LAB L501.1100 0.70-1.30 mg/dL Normal CREAT,SERUM 0.91 Result Comment: The validity of the calculated GFR AND GFRAA in patients over 70 years has not been determined. Clinical correlation is essential. LAB L501.1110 >60 mL/min Normal EST GFR 89 Result Comment: Non- GFR Calc LAB L501.1115 >60 mL/min Normal EST GFR - AA 108 Result Comment: GFR Calc LAB L501.1255 ml/min Normal Estimated CRCL 73.03 LAB L501.1300 10-20 RATIO Normal BUN/CRE 19.8 LAB L501.2200 8.5-10 mg/dL Normal .1 CA 8.5 LAB L501.5300 136-14 mmol/L Normal 5 NA 142 LAB L501.5600 3.5-5. mmol/L Normal 1 K 4.5 LAB L501.5900 98-107 mmol/L High CL 109 LAB L501.6100 21.0-3 mmol/L Normal 2.0 CO2 28.0 LAB L501.6200 5-15 Normal GAP 5 Performed By: #### L500.2500, L300.3900, L300.4310 #### [facility] [address] [place], [place], [id number] PROTHROMBIN TIME W/INR Collected: 05/12/2018 Status: F Source: [place] 6:50 AM [facility] REPOSITORY TYPE CODE TESTS RESULT OUT OF RANGE REFERENCE UNITS LAB L300.4150 11.7-14.9 SECONDS Normal PROTIME 13.3 LAB L300.4200 Normal INR 1.0 Performed By: #### L500.2500, L300.3900, L300.4310 #### [facility] [address] [place], [place], [id number] PARTIAL THROMBOPLAST Collected: 05/12/2018 Status: F Source: [place] TIME 6:50 AM [facility] REPOSITORY TYPE CODE TESTS RESULT OUT OF RANGE REFERENCE UNITS LAB L300.4310 24.1-36.2 Seconds Normal PTT 30.5 Performed By: #### L500.2500, L300.3900, L300.4310 #### [facility] [address] [place], [place], [id number] LIPID PROFILE Collected: 05/12/2018 Status: F Source: [place] 6:50 AM [facility] REPOSITORY TYPE CODE TESTS RESULT OUT OF RANGE REFERENCE UNITS LAB L501.4900 200 mg/dL Normal CHOL 143 Result Comment: <200 mg/dL Desirable 200-240 mg/dL Borderline >240 mg/dL High Risk LAB L501.5000 mg/dL Normal TRIG 173 Result Comment: The drugs N-Acetylcysteine and Metamizole may falsely depress this assay. Serum Triglycerides Reference Interval Normal <150 mg/dL Borderline high 150 - 199 mg/dL High 200 - 499 mg/dL Very High > or = 500 mg/dL LAB L501.6400 mg/dL Low HDL 39 Result Comment: The drugs N-Acetylcysteine and Metamizole may falsely depress this assay. Reference Range HDL <40 mg/dL Low HDL Cholesterol HDL >or= 60 mg/dL High HDL Cholesterol LAB L501.6500 0-130 mg/dL Normal LDL 69 LAB L501.6600 5-40 mg/dL Normal VLDL 35 Performed By: #### L500.4100, L501.9520 #### [facility] [address] [place], [place], [id number] THYROID STIM HORMONE Collected: 05/12/2018 Status: F Source: [place] (TSH) 6:50 AM [facility] REPOSITORY TYPE CODE TESTS RESULT OUT OF RANGE REFERENCE UNITS LAB L501.9520 0.358-3.74 uIU/mL Normal TSH 0.91 Performed By: #### L500.4100, L501.9520 #### [facility] [address] [place], [place], [address] HEMOGLOBIN A1C Collected: 05/12/2018 Status: F Source: [place] 6:50 AM [facility] REPOSITORY TYPE CODE TESTS RESULT OUT OF RANGE REFERENCE UNITS LAB L501.9985 4.2-6.3 % High HGB A1C 6.4 Performed By: #### L501.9985 #### [facility] [address] [place], [place], [address] BEDSIDE GLUCOSE Collected: 05/12/2018 Status: F Source: [place] 6:18 AM [facility] REPOSITORY TYPE CODE TESTS RESULT OUT OF REFERENCE UNITS RANGE LAB L501.080 70-110 mg/dL High BEDSIDE GLU 139 Result Comment: MANAGEMENT OF PATIENT CARE PER NURSING PROTOCOL Performed By: #### L501.080 #### [facility] Point of Care [address] [place] [address] TROPONIN-I Collected: 05/11/2018 Status: F Source: [place] 9:43 PM [facility] REPOSITORY Order Comment: 'TROP' Serial specimen #1, #2 or #3: 3 TYPE CODE TESTS RESULT OUT OF RANGE REFERENCE UNITS LAB L501.4010 <0.045 ng/mL Normal < 0.015 TROPONIN-I Result Comment: TROPONIN-I EXPECTED VALUES <0.045 Negative 0.045 - 0.590 Consistent with Cardiac Damage > OR = 0.600 Critical Value Not every elevated troponin is indicative of DE. These values should be used with clinical judgement in examining the patient's clinical picture for diagnosis. To establish a diagnosis of DE versus myocardial injury, there must be a demonstrated rise and/or fall in the troponin values, in addition to ischemic symptoms, EKG changes, new regional wall motion abnormality, and/or angiographical evidence. PLEASE NOTE: REFERENCE RANGES EDITED 17 Performed By: #### L501.4010 #### [facility] [address] [place], [address] BEDSIDE GLUCOSE Collected: 05/11/2018 Status: F Source: [place] 9:25 PM [facility] REPOSITORY TYPE CODE TESTS RESULT OUT OF REFERENCE UNITS RANGE LAB L501.080 70-110 mg/dL High BEDSIDE GLU 129 Result Comment: MANAGEMENT OF PATIENT CARE PER NURSING PROTOCOL Performed By: #### L501.080 #### [facility] Point of Care [address] [place] [address] EMERGENCY DEPARTMENT Observed: 05/11/2018 Status: F Source: [place] SUMMARY 8:30 PM [facility] REPOSITORY [facility] Medical Records Department [address] [place] [address] Emergency Department Summary 05/11/18 1503 MR#: [id number] Acct: [id number] Name: DOMINIK YEE Rep #: [id number] : 1950 67 From: Roger Kellogg MD PCP: Mariposa Tuttle Status: ADM YASMINE - ER Visit Summary Date of Service: 05/11/18 Chief Complaint: Chest pain, nausea, diaphoresis History of Present Illness: The patient is a 67 M with history of diabetes, hypertension, hyperlipidemia, and smoking presents to the emergency department chest pain, nausea, diaphoresis. Normal state of health. He states that Friday night, he began to feel sick. He states that he was very nauseated. He states he had a few bouts of vomiting. Since then, he has had intermittent bouts of chest pain. He describes it as a heaviness in his left chest that goes into his arm. He states that he does get very diaphoretic with it. He is unsure if it is made worse with exertion. He does get short of breath. He has had intermittent pain in his midepigastric area also. It does seem to be worse with food. He states he has never had symptoms like this before. He does not that he had fever. He has no documented history of coronary vascular disease. Physical Examination: Vital signs reviewed General: Well-nourished, well-developed Head: Normocephalic, atraumatic Eyes: Pupils equal and reactive, extraocular muscles intact Neck, supple, no lymphadenopathy Heart: Regular rate and rhythm Respiratory: No distress, clear bilaterally Abdomen: Soft, nontender, nondistended, no peritoneal signs Back: Nontender Extremities: Nontender, no edema, no cords Skin: Normal color no rash Neuro: Alert and oriented, no focal or lateralizing deficits Test Results: [] Emergency Department Course and Treatment: The patient presents to the emergency department with chest pain. He has multiple history of coronary vascular disease. His EKG does not show evidence of acute ischemia. Patient was given nitro and was totally pain-free. His screening labs including cardiac enzymes were unremarkable. His x-ray shows no volume overload or other dangerous process. He continues to remain pain-free. At this time, I do feel that the patient will require admission for cardiac workup. Patient was discussed with the hospitalist and will be admitted. Treatment Plan: [] Disposition: Admission Impression: 1. Chest pain This note was generated with [employer] dictation software. It may contain incorrect words, spelling, and punctuation that were not noted in review of the chart prior to signing ED Disposition - Plan for ED Patient: Chief Complaint: Chest Pain Referrals: Mariposa Ruiz NP-C [Primary Care Provider] - What to do if you have Problems For any increased pain, shortness of breath, bleeding, nausea or vomiting, chest pain, or any unexpected problems, contact your Primary Care Provider. Call [facility] ([phone]) or report to the closest Emergency Room. Call 911 if necessary. 05/11/182029 <Electronically signed by Roger Kellogg MD> Date Roger Kellogg MD Cosigner Signature (If Indicated): Date CC: Mariposa CHACON HISTORY AND PHYSICAL Observed: 05/11/2018 Status: F Source: [place] EXAM 8:02 PM [facility] REPOSITORY [facility] Medical Records Department [address] [place] [address] History and Physical 05/11/18 1950 MR#: [id number] Acct: [id number] Name: DOMINIK YEE Rep #: [id number] : 1950 67 From: Ritesh Cabral MD PCP: Mariposa Tuttle Status: ADM YASMINE Y Location: [place] [address] Problem List (1) COPD (chronic obstructive pulmonary disease) Status: Chronic (2) Diabetes mellitus type 2 in obese Status: Acute (3) Acute chest pain Status: Acute (4) Tobacco dependence Status: Chronic (5) Hyperglycemia, unspecified Status: Acute History of Present Illness Date of Admission: 05/11/18 Chief Complaint: Atypical chest pain The patient is a 67 year old M with history of diabetes mellitus type 2 on metformin, hypertension, dyslipidemia came to ER for atypical chest pain for last 2 days. Patient had a large meal on and then had nausea and vomiting only gastric type without GI bleed. After that, he had more pain and dyspeptic symptoms. On past Friday he felt epigastric and lower chest pain midsternal, radiating to back and numbness to both hands. Patient denies any exacerbating or relieving factor. Described chest pain as more like burning, lasting for about 15 seconds, intermittent with multiple episodes. He had associated symptoms of diaphoresis. He has chronic shortness of breath secondary to COPD. [] Had Lexiscan stress test done in February 2017 and was negative for stress-induced ischemia. In ED, chest x-ray showed no acute abnormality. EKG shows normal sinus rhythm with incomplete right bundle branch block, QRS 94 ms. Clinical Impression(s) from Imaging Studies Chest X-Ray 05/11/18 15:05 IMPRESSION: No acute abnormality is present. Past Medical History Past Medical History (Chronic Problems): Chronic Problems COPD (chronic obstructive pulmonary disease) (Chronic) Tobacco dependence (Chronic) Allergies morphine Allergy (Verified 05/11/18 14:50) Rash Home Medications: Ambulatory Orders Medication Instructions Recorded Smoking Status: Current every day smoker Tobacco Use: Cigarettes - *Family History Maternal History Items: No pertinent history Paternal History Items: Stroke Sibling History Items: Cancer Review of Systems Constitutional: Denies: Chills, Fever, Weight Change HEENT: Denies: Head Aches, Sinus Congestion, Sinus Drainage Cardiovascular: Reports: Chest Pain. Denies: Palpitations Respiratory: Reports: Cough - Chronic COPD cough occasionally, Shortness of breath upon exertion. Denies: Shortness of breath at rest, Sputum production Gastrointestinal: Reports: Abdominal Pain, Nausea, Vomiting Genitourinary: Denies: Dysuria Musculoskeletal: Denies: Joint Pain, Joint Tenderness Skin: Denies: Rash, Wounds Neurological: Denies: Numbness, Tingling, Focal weakness Psychiatric: Denies: Anxiety, Depression, Homicidal Ideations, Suicidal Ideations Hematologic/ Lymphatic: Denies: Easy Bruising, Easy Bleeding VTE Information - Inpt Only VTE Present on Admission: No VTE Mechan Device Prophylaxis: None VTE Pharm Prophylaxis ordered?: Yes Patient Problems: Active and Suspected Problems Diabetes mellitus type 2 in obese (Acute) - Physical Exam General: Alert, Oriented x3, Cooperative HEENT: Atraumatic, PERRLA, EOMI, Normocephalic Neck: Supple, No JVD, Negative Carotid Bruits Lungs: No rales, Diminished - Air entry diminished bilaterally., Rhonchi - Bilateral fine expiratory rhonchi present Cardiovascular: Regular rate, Regular Rhythm, Normal S1, Normal S2, No murmurs Abdomen: Bowel Sounds Present, Soft, Non Tender, Non-Distended Extremities: No edema, Capillary Refill Less than 3 Seconds Skin: No rashes, No breakdown Musculoskeletal: No Tenderness to Palpation of Joints or Extremities, Arthritic Changes Neurological: Cranial nerves II-XII grossly intact Psych/Mental Status: Normal Affect, Appropriate Vital Signs Temp Pulse Resp BP Pulse Ox 97.9 F 74 20 H 121/74 H 95 05/11/18 17:16 05/11/18 19:17 05/11/18 17:24 05/11/18 17:16 05/11/18 17:16 Oxygen Delivery Method Room Air Weight: 198 lb 13.711 oz Body Mass Index (BMI) 32.1 Intake and Output for Last 24 Hours Intake Total 240 / 240 Balance 240 / 240 Laboratory Tests Past 24 Hrs Assessment/Plan All Active Problems Diabetes mellitus type 2 in obese (Acute) Acute chest pain (Acute) Hyperglycemia, unspecified (Acute) The patient is a 67 year old M with history of diabetes mellitus type 2 on metformin, hypertension, dyslipidemia came to ER for atypical chest pain for last 2 days. Patient had a large meal on and then had nausea and vomiting only gastric type without GI bleed. After that, he had more pain and dyspeptic symptoms. On past Friday he felt epigastric and lower chest pain midsternal, radiating to back and numbness to both hands. Patient denies any exacerbating or relieving factor. Described chest pain as more like burning, lasting for about 15 seconds, intermittent with multiple episodes. He had associated symptoms of diaphoresis. He has chronic shortness of breath secondary to COPD. [] Had Lexiscan stress test done in February 2017 and was negative for stress-induced ischemia. In ED, chest x-ray showed no acute abnormality. EKG shows normal sinus rhythm with incomplete right bundle branch block, QRS 94 ms. 1. Atypical chest pain probably dyspeptic symptoms/gastric in nature; rule out ACS: Patient is being admitted on PCU. Serial troponin enzymes. Repeat EKG. If troponin negative, Lexiscan nuclear stress test tomorrow morning. Continue baby aspirin, atorvastatin and lisinopril, nitro sublingual as needed for chest pain. 2. COPD: Patient is on albuterol inhaler, Mucinex at home. DuoNeb as needed. Not on home oxygen. Chest x-ray did not show acute abnormality. 3. Probably, acute gastroenteritis/indigestion about 3-4 days ago: Resolved. 4 Diabetes mellitus type 2: Glucose and BMP 213. A1c tomorrow a.m. Accu-Cheks before meals and at bedtime and cover with Humalog insulin. 5. Hypertension: Blood pressure is controlled. DVT prophylaxis: On Lovenox 40 minutes subcu daily. This note was generated with The [employer] dictation software. Every effort was made to ensure accuracy, however computerized customer liaison mistakes may persist. clinical Impression(s) from Imaging Studies Chest X-Ray 05/11/18 15:05 IMPRESSION: No acute abnormality is present. Laboratory Results 05/11/18 15:20: WBC 8.2, RBC 5.34, Hgb 16.3, Hct 48.5, MCV 90.8, MCH 30.5, MCHC 33.6, RDW 12.7, RDW Differential 42.2, Plt Count 241, MPV 10.5, Immature Gran % (Auto) 0.700, Neut % (Auto) 51.3, Lymph % (Auto) 35.5, [place] % (Auto) 7.3, Eos % (Auto) 3.1, Baso % (Auto) 2.1 H, Absolute Neuts (auto) 4.2, Absolute Lymphs (auto) 2.90, Total Counted Not Reportable 05/11/18 15:20: Sodium 138, Potassium 3.6, Chloride 104, Carbon Dioxide 27.0, Anion Gap 7, BUN 23 H, Creatinine 0.96, Estim Creat Clear Calc 69.23, Est GFR (MDRD) Af Amer 100, Est GFR (MDRD) Non-Af 83, BUN/Creatinine Ratio 23.9 H, Glucose 213 H, Calcium 8.9, Magnesium 2.0, Total Bilirubin 0.40, Direct Bilirubin 0.12, AST 12 L, ALT 23, Alkaline Phosphatase 87, Troponin I < 0.015, Total Protein 7.9, Albumin 3.9, Globulin 4.0, Lipase 107 05/11/18 18:53: Troponin I < 0.015 Code Visit OBSV E AND M: [id number] Initial observation care L3 05/11/182001 <Electronically signed by Ritesh Cabral MD> Date Ritesh Cabral MD Cosigner Signature: Date (if applicable) CC: Mariposa Ruiz MUTUEL DEPARTMENT MANAGER-C; Ritesh Cabral MD Signed CBC W/DIFF, AUTOMATED Collected: 05/11/2018 Status: F Source: [place] 3:20 PM [facility] REPOSITORY TYPE CODE TESTS RESULT OUT OF RANGE REFERENCE UNITS LAB L100.1000 4.4-11.0 K/mm3 Normal WBC 8.2 LAB L100.1200 4.6-6.2 M/mm3 Normal RBC 5.34 LAB L100.1300 13.0-16.5 g/dl Normal HGB 16.3 LAB L100.1400 40-54 % Normal HCT 48.5 LAB L100.1500 80-94 fL Normal MCV 90.8 LAB L100.1600 27.0-32.0 pg Normal MCH 30.5 LAB L100.1700 32-36 g/gl Normal MCHC 33.6 LAB L100.1810 11.6-14.6 % Normal RDW CV 12.7 LAB L100.1820 35.1-43.9 fl Normal RDW SD 42.2 LAB L100.1900 150-450 K/mm3 Normal PLT 241 LAB L100.2000 6.2-12.0 fl Normal MPV 10.5 LAB L100.2100 47-70 % Normal NEUT% 51.3 LAB L100.2200 19-41 % Normal LY% 35.5 LAB L100.2300 0-10 % Normal MONO% 7.3 LAB L100.2400 0-5 % Normal EO% 3.1 LAB L100.2500 0-1 % High BASO% 2.1 LAB L100.2550 0.0-0.9 % Normal IM GRAN % 0.700 Result Comment: IG% - Immature Granulocytes (promyelocytes, myelocytes and metamyelocytes) > 1% indicates that a LEFT SHIFT is Present. LAB L100.2620 2.0-7.7 X10 3/uL Normal Absolute Neut 4.2 LAB L100.2720 0.83-4.51 X10 3/ul Normal Absolute Lymph 2.90 Performed By: #### L100.0100 #### [facility] [address] [place], [address] BASIC METABOLIC Collected: 05/11/2018 Status: F Source: [place] PROFILE (BMP) 3:20 PM [facility] REPOSITORY TYPE CODE TESTS RESULT OUT OF RANGE REFERENCE UNITS LAB L501.0100 74-106 mg/dL High GLU 213 Result Comment: Glucose result greater than or equal to 200 mg/dL suggests DIABETES MELLITUS per A.D.A. criteria. Please note revised GLUCOSE reference range effective 2017. LAB L501.1000 7-18 mg/dL High BUN 23 LAB L501.1100 0.70-1.30 mg/dL Normal CREAT,SERUM 0.96 Result Comment: The validity of the calculated GFR AND GFRAA in patients over 70 years has not been determined. Clinical correlation is essential. LAB L501.1110 >60 mL/min Normal EST GFR 83 Result Comment: Non- GFR Calc LAB L501.1115 >60 mL/min Normal EST GFR - AA 100 Result Comment: GFR Calc LAB L501.1255 ml/min Normal Estimated CRCL 69.23 LAB L501.1300 10-20 RATIO High BUN/CRE 23.9 LAB L501.2200 8.5-10 mg/dL Normal .1 CA 8.9 LAB L501.5300 136-14 mmol/L Normal 5 NA 138 LAB L501.5600 3.5-5. mmol/L Normal 1 K 3.6 LAB L501.5900 98-107 mmol/L Normal CL 104 LAB L501.6100 21.0-3 mmol/L Normal 2.0 CO2 27.0 LAB L501.6200 5-15 Normal GAP 7 Performed By: #### L500.2500, L500.3400, L501.2450, L501.4010, L501.5200 #### [facility] [address] [place], [address] LIVER PROFILE Collected: 05/11/2018 Status: F Source: [place] 3:20 PM [facility] REPOSITORY TYPE CODE TESTS RESULT OUT OF RANGE REFERENCE UNITS LAB L501.1500 6.4-8.2 g/dL Normal T PROT 7.9 LAB L501.1800 3.2-5.0 g/dL Normal ALB 3.9 LAB L501.1950 2.2-4.2 g/dL Normal GLOB 4.0 LAB L501.4100 15-37 U/L Low AST 12 LAB L501.4305 45-117 U/L Normal ALK P 87 LAB L501.4405 16-61 U/L Normal ALT 23 LAB L501.4600 0.20-1.00 mg/dL Normal T BILI 0.40 LAB L501.4700 0.00-0.30 mg/dL Normal D BILI 0.12 Performed By: #### L500.2500, L500.3400, L501.2450, L501.4010, L501.5200 #### [facility] [address] [facility] [place], [place], [id number] LIPASE Collected: 05/11/2018 Status: F Source: [place] 3:20 PM [facility] REPOSITORY TYPE CODE TESTS RESULT OUT OF RANGE REFERENCE UNITS LAB L501.2450 73-393 U/L Normal LIPASE 107 Performed By: #### L500.2500, L500.3400, L501.2450, L501.4010, L501.5200 #### [facility] [address] [facility] [place], [place], [address] TROPONIN-I Collected: 05/11/2018 Status: F Source: [place] 3:20 PM [facility] REPOSITORY TYPE CODE TESTS RESULT OUT OF RANGE REFERENCE UNITS LAB L501.4010 <0.045 ng/mL Normal < 0.015 TROPONIN-I Result Comment: TROPONIN-I EXPECTED VALUES <0.045 Negative 0.045 - 0.590 Consistent with Cardiac Damage > OR = 0.600 Critical Value Not every elevated troponin is indicative of DE. These values should be used with clinical judgement in examining the patient's clinical picture for diagnosis. To establish a diagnosis of DE versus myocardial injury, there must be a demonstrated rise and/or fall in the troponin values, in addition to ischemic symptoms, EKG changes, new regional wall motion abnormality, and/or angiographical evidence. PLEASE NOTE: REFERENCE RANGES EDITED 18 Performed By: #### L500.2500, L500.3400, L501.2450, L501.4010, L501.5200 #### [facility] [address] [place], [address] MAGNESIUM Collected: 05/11/2018 Status: F Source: [place] 3:20 PM [facility] REPOSITORY TYPE CODE TESTS RESULT OUT OF RANGE REFERENCE UNITS LAB L501.5200 1.6-2.6 mg/dL Normal MG 2.0 Performed By: #### L500.2500, L500.3400, L501.2450, L501.4010, L501.5200 #### [facility] [address] [facility] [place], [address] CHEST 1 VIEW Observed: 05/11/2018 Status: F Source: [place] (PORTABLE) 3:02 PM [facility] REPOSITORY [facility] Imaging Services [address] [place] [address] Chest 1 View (Portable) MR#: [id number] Acct: [id number] Name: DOMINIK YEE Rep #: [id number] : 1950 M 67 From: Doc Trimble MD PCP: Mariposa Tuttle Status: REG ER Study: Chest 1 View (Portable) Date of Exam: 05/11/18 Exam# [id number] Ordering Dr: Roger Kellogg MD STUDY: X-RAY CHEST REASON FOR EXAM: Male, 67 years old. Diaphoresis. Intermittent chest pain. TECHNIQUE: Single AP portable view of the chest. COMPARISON: Comparison is made with prior study February 14, 2017. FINDINGS: EKG electrodes are seen. The lungs are clear and expanded. There is no demonstrated pleural abnormality. Normal size heart. Normal mediastinum and kelli. Normal visualized pulmonary arteries. Normal visualized aortic arch and descending thoracic aorta. There are diffuse degenerative changes of the visualized thoracic spine. Normal visualized ribs, clavicles, and shoulders. There is no demonstrated abnormality of the visualized soft tissue structures of the upper abdomen. RAD/Chest 1 View (Portable) IMPRESSION: No acute abnormality is present. Electronically Signed: Doc Trimble MD at 15:38 EST Tel [phone], Service support , CC: Mariposa CHACON; Roger Kellogg MD Railway Signalling Engineer: Signed EMERGENCY DEPARTMENT Observed: 01/17/2018 Status: F Source: [place] SUMMARY 4:19 PM [facility] REPOSITORY [facility] Medical Records Department [address] [place] [address] Emergency Department Summary 01/17/18 1057 MR#: [id number] Acct: [id number] Name: DOMINIK YEE Rep #: [id number] : 1950 67 From: Latasha June MD PCP: Mariposa Tuttle Status: DEP ER - ER Visit Summary Date of Service: 01/17/18 Chief Complaint: [] Runny nose and a harsh cough for about 4 days History of Present Illness: The patient is a 67 M [] hypertension, reports for 4 days she has had a copiously runny nose and a harsh cough no fever no chest pain no abdominal pain able to eat and drink no orthopnea or PND he denies history of DE PE DVT or COPD although he does smoke he is really only on blood pressure medicine he has been doing fine at home Physical Examination: [] Very harsh dry cough here his nose is quite congested he is in no distress speaking full sentences when he is not coughing the throat is unremarkable the lungs are minimal wheezing diffusely but good excursion the heart tones are unremarkable the abdomen is soft and nontender he has around abdomen but nontender he is moving all 4 extremities no orthopnea PND or leg edema cyanosis clubbing or edema or logically he is awake and alert when he is not coughing clinically he looks well Test Results: [] Emergency Department Course and Treatment: [] This time of explained the patient we can do extensive evaluation with x-rays labs etc. EKG but he declined all that he was agreeable to a DuoNeb Afrin nasal spray, he feels well wants to go home, he will be discharged on Proventil inhaler Flonase Mucinex and to follow-up with his doctor and return for change in symptoms Treatment Plan: [] Disposition: [] Home stable Impression: [] Acute URI with harsh cough This note was generated with The [employer] dictation software. It may contain incorrect words, spelling, and punctuation that were not noted in review of the chart prior to signing ED Disposition - Plan for ED Patient: Chief Complaint: Shortness of Breath Referrals: Mariposa Ruiz NP-C [Primary Care Provider] - What to do if you have Problems For any increased pain, shortness of breath, bleeding, nausea or vomiting, chest pain, or any unexpected problems, contact your Primary Care Provider. Call [facility] ([phone]) or report to the closest Emergency Room. Call 911 if necessary. 01/17/18 8959 <Electronically signed by Latasha June MD> Date Latasha June MD Cosigner Signature (If Indicated): Date CC: Mariposa CHACON DISCHARGE INSTRUCTION Observed: 01/17/2018 Status: F Source: [place] 11:01 AM [facility] REPOSITORY [facility] Medical Records Department [address] [place] [address] Discharge Instruction 01/17/18 1058 MR#: [id number] Acct: [id number] Name: DOMINIK YEE Rep #: [id number] : 1950 67 From: Latasha June MD PCP: Mariposa Tuttle Status: PRE ER ED Disposition - Plan for ED Patient: Chief Complaint: Shortness of Breath Instructions: ED Upper Resp Infec No Abx Tx, ED COPD Flare Prescriptions: Albuterol Inhaler [Ventolin Hfa] 2 puff INHALATION Q4H PRN PRN #1 inhaler PRN Reason: Wheezing Fluticasone 0.05% [Flonase Nasal [place]] 1 spray NASAL BID #1 bottle Guaifenesin [Mucinex] 1,200 mg PO BID #14 tbmp.12hr Referrals: Mariposa Ruiz NP-C [Primary Care Provider] - What to do if you have Problems For any increased pain, shortness of breath, bleeding, nausea or vomiting, chest pain, or any unexpected problems, contact your Primary Care Provider. Call [facility] ([phone]) or report to the closest Emergency Room. Call 911 if necessary. 01/17/18 1101 <Electronically signed by Latasha June MD> Date Latasha June MD Cosigner Signature (If Indicated): Date CC: No Primary Care Physician; Mariposa CHACON CNOV Observed: 01/15/2018 Status: COMPLETED Source: [place] 11:45 AM [facility] REPOSITORY Office Visit (WSTR) DOMINIK YEE ([id number]) 1950 M Date Time Provider Department 01/15/18 11:45 AM [facility] During your visit today, we recorded the following information about you: Temperature Pulse Respiration Blood pressure 97.1 degrees 83/minute 16/minute 118/60 Weight 82.6 kg Tom Dugan MD 01/15/2018 12:20 PM Addendum Patient presents with: Cough: x 3 days cough and cheat congestion Pain, Sinus: x 3 days headache and sinus pain/pressure HPI: Feeling sick for 3 days. Positive symptoms: Cough, Sinus pressure, Headache, Shortness of breath, Chest tightness, Nasal Congestion, Rhinorrhea, Negative symptoms: Fever, Chills, OTC: none. PAST MEDICAL HISTORY Diagnosis Date - Back pain 1977 since fall from roof - COPD (chronic obstructive pulmonary disease) ([facility]) - Hyperlipidemia 2013 - Tobacco use disorder - Vitamin D deficiency 2013 MEDICATIONS: Current Outpatient Prescriptions: atorvastatin (LIPITOR) 20 mg tablet Take 20 mg by mouth once daily. lisinopril (ZESTRIL, PRINIVIL) 10 mg tablet Take 10 mg by mouth once daily. metFORMIN (GLUCOPHAGE) 500 mg tablet Take 500 mg by mouth once daily. metoprolol tartrate, short acting, (LOPRESSOR) 25 mg tablet Take 25 mg by mouth twice daily. nitroglycerin sublingual (NITROQUICK) 0.4 mg SL tablet DISSOLVE ONE TABLET UNDER THE TONGUE EVERY 5 MIN. X3 MAX DOSES NEEDED FOR CHEST PAIN No current facility-administered medications for this visit. ALLERGIES: ALLERGIES Allergen Reactions - Morphine Rash, Hives VITALS: BP 118/60 Pulse 83 Temp 36.2 ?C (97.1 ?F) Resp 16 Wt 82.6 kg (182 lb) SpO2 95% BMI 29.38 kg/m? PHYSICAL EXAM: GEN: mildly ill appearing HEENT: PERRL, EOMI, conjunctiva clear Ears: TMs without erythema, bulge, or effusion Sinuses: non-tender frontal sinus, non-tender maxillary sinuses Throat: moist mucous membranes, mild erythema, no exudate Neck: supple, no thyromegaly, no lymphadenopathy HEART: regular rate and rhythm, no murmurs LUNGS: clear to auscultation, no wheezes or crackles, no increased WOB; tight cough ASSESSMENT/PLAN: 1. COPD with exacerbation ([facility]) - ICD9: 491.21, ICD10: J44.1 - PREDNISONE 20 MG TABLET - 3 day burst. Reports his sugars have been around 97. - ALBUTEROL SULFATE HFA 90 MCG/ACTUATION AEROSOL INHALER - INHALATIONAL SPACING DEVICE Tom Dugan MD Referring Provider: SELF [200] Allergies As of Date: 01/15/2018 Noted Allergy Reaction MORPHINE 01/03/2014 2 - Rash 4 - Hives Date Reviewed: 01/15/2018 Reviewed by: Eva Diego LPN - Fully Assessed Reason for Visit: Cough [28] Cmt: x 3 days cough and cheat congestion Pain, Sinus [857] Cmt: x 3 days headache and sinus pain/pressure Primary Visit Diagnosis:COPD with exacerbation ([facility]) [J44.1] Order(s):predniSONE (DELTASONE) 20 mg tabletTake 1 tablet by mouth once daily for 3 days. Take daily with food.Disp: 3 tabletRfl: 0 albuterol HFA (PROVENTIL HFA, VENTOLIN HFA) 90 mcg/actuation inhalerInhale 2 Puffs as instructed every 4 hours as needed for Wheezing/Shortness of Breath.Disp: 1 InhalerRfl: 0 Inhalational Spacing Device spcr1 Device one time only for 1 dose.Disp: 1 EachRfl: 0 Prescriptions as of 01/15/2018 Sig: ATORVASTATIN 20 MG TABLET Take 20 mg by mouth once castro* LISINOPRIL 10 MG TABLET Take 10 mg by mouth once castro* METFORMIN 500 MG TABLET Take 500 mg by mouth once rayna* METOPROLOL TARTRATE 25 MG TAB* Take 25 mg by mouth twice rayna* NITROGLYCERIN 0.4 MG SUBLINGU* DISSOLVE ONE TABLET UNDER THE* PREDNISONE 20 MG TABLET Take 1 tablet by mouth once d* ALBUTEROL SULFATE HFA 90 MCG/* Inhale 2 Puffs as instructed * INHALATIONAL SPACING DEVICE 1 Device one time only for 1 * Problem List As Of Date 01/15/2018 Noted Resolved Tobacco use disorder [F17.200] Back pain [M54.9] More... COPD (chronic obstructive pulmonary disease) (H* Hyperlipidemia [E78.5] Vitamin D deficiency [E55.9] Prescriptions ordered this encounter Disp Refills Start End PREDNISONE 20 MG TABLET 3 ta* 0 01/15/2018 01/15/2018 Route: ORAL Sig: Take 1 tablet by mouth once daily for 3 days. Take daily with food. Disc: Erroneous entry ALBUTEROL SULFATE HFA 90 MCG/ACTUATI* 1 In* 0 01/15/2018 01/15/2018 Route: INHALATION Sig: Inhale 2 Puffs as instructed every 4 hours as needed for Wheezing/Shortness of Breath. Disc: Erroneous entry INHALATIONAL SPACING DEVICE 1 Ea* 0 01/15/2018 01/15/2018 Route: Misc Si Device one time only for 1 dose. Disc: Erroneous entry PREDNISONE 20 MG TABLET 3 ta* 0 01/15/2018 01/18/2018 Route: ORAL Sig: Take 1 tablet by mouth once daily for 3 days. Take daily with food. ALBUTEROL SULFATE HFA 90 MCG/ACTUATI* 1 In* 0 01/15/2018 Route: INHALATION Sig: Inhale 2 Puffs as instructed every 4 hours as needed for Wheezing/Shortness of Breath. INHALATIONAL SPACING DEVICE 1 Ea* 0 01/15/2018 01/15/2018 Route: Misc Si Device one time only for 1 dose. Medications Discontinued During This Encounter fluticasone-salmeterol (ADVAIR DISKU* 1 Ea* 5 03/02/2014 01/15/2018 Route: INHALATION Sig: Inhale 1 Puff as instructed twice daily. Rinse and gargle mouth after use with water. Disc: Discontinued by Patient cholecalciferol, Vitamin D3, (VITAMI* 12 c* 0 04/06/2014 01/15/2018 Route: ORAL Sig: Take 1 capsule by mouth once each week. Disc: Discontinued by Patient varenicline (CHANTIX CONTINUING TANISHA* 1 Pa* 1 04/18/2014 01/15/2018 Route: ORAL Sig: Take 1 tablet by mouth twice daily. Patient not taking: Reported on 01/15/2018 Disc: Discontinued by Patient meloxicam (MOBIC) 15 mg tablet 01/15/2018 Class: Historical Med Route: ORAL Sig: Take 15 mg by mouth once daily. Disc: Course of therapy completed Inhalational Spacing Device spcr 1 Ea* 0 01/15/2018 01/15/2018 Route: Miscell. (Med.Supl.;Non-Drugs) Si Device one time only for 1 dose. Disc: Erroneous entry albuterol HFA (PROVENTIL HFA, VENTOL* 1 In* 0 01/15/2018 01/15/2018 Route: INHALATION Sig: Inhale 2 Puffs as instructed every 4 hours as needed for Wheezing/Shortness of Breath. Disc: Erroneous entry predniSONE (DELTASONE) 20 mg tablet 3 ta* 0 01/15/2018 01/15/2018 Route: ORAL Sig: Take 1 tablet by mouth once daily for 3 days. Take daily with food. Disc: Erroneous entry Encounter Status:Closed by TOM DUGAN MD on 01/15/18 PROGRESS Observed: 01/15/2018 Status: COMPLETED Source: [place] 11:42 AM [facility] [place] REPOSITORY HNO ID: [id number] Author: Tom Dugan Service: (none) Author Type: Physician Type: Progress Notes Filed: 01/15/2018 12:20 PM Note Text: Patient presents with: Cough: x 3 days cough and cheat congestion Pain, Sinus: x 3 days headache and sinus pain/pressure HPI: Feeling sick for 3 days. Positive symptoms: Cough, Sinus pressure, Headache, Shortness of breath, Chest tightness, Nasal Congestion, Rhinorrhea, Negative symptoms: Fever, Chills, OTC: none. PAST MEDICAL HISTORY Diagnosis Date - Back pain 1977 since fall from roof - COPD (chronic obstructive pulmonary disease) (HCC) - Hyperlipidemia 2013 - Tobacco use disorder - Vitamin D deficiency 2013 MEDICATIONS: Current Outpatient Prescriptions: atorvastatin (LIPITOR) 20 mg tablet Take 20 mg by mouth once daily. lisinopril (ZESTRIL, PRINIVIL) 10 mg tablet Take 10 mg by mouth once daily. metFORMIN (GLUCOPHAGE) 500 mg tablet Take 500 mg by mouth once daily. metoprolol tartrate, short acting, (LOPRESSOR) 25 mg tablet Take 25 mg by mouth twice daily. nitroglycerin sublingual (NITROQUICK) 0.4 mg SL tablet DISSOLVE ONE TABLET UNDER THE TONGUE EVERY 5 MIN. X3 MAX DOSES NEEDED FOR CHEST PAIN No current facility-administered medications for this visit. ALLERGIES: ALLERGIES Allergen Reactions - Morphine Rash, Hives VITALS: BP 118/60 Pulse 83 Temp 36.2 ?C (97.1 ?F) Resp 16 Wt 82.6 kg (182 lb) SpO2 95% BMI 29.38 kg/m? PHYSICAL EXAM: GEN: mildly ill appearing HEENT: PERRL, EOMI, conjunctiva clear Ears: TMs without erythema, bulge, or effusion Sinuses: non-tender frontal sinus, non-tender maxillary sinuses Throat: moist mucous membranes, mild erythema, no exudate Neck: supple, no thyromegaly, no lymphadenopathy HEART: regular rate and rhythm, no murmurs LUNGS: clear to auscultation, no wheezes or crackles, no increased WOB; tight cough ASSESSMENT/PLAN: 1. COPD with exacerbation (HCC) - ICD9: 491.21, ICD10: J44.1 - PREDNISONE 20 MG TABLET - 3 day burst. Reports his sugars have been around 97. - ALBUTEROL SULFATE HFA 90 MCG/ACTUATION AEROSOL INHALER - INHALATIONAL SPACING DEVICE Tom Dugan MD UA Collected: 01/01/2018 Status: F Source: [facility] [employer] 3:27 PM [facility] [place] REPOSITORY TYPE CODE TESTS RESULT OUT OF REFERENCE UNITS RANGE LAB SPCUA(LOIN C) UA Specimen Type Clean Catch LAB CLRUA(LOIN C) UA Color Yellow LAB APPUA(LOIN Clear C) UA Appear Clear LAB SGUA(LOINC ) UA Spec Grav 1.020 LAB GLUA(LOINC Negative mg/dL ) UA Glucose Negative LAB BILUA(LOIN Negative C) UA Bili Negative LAB KETUA(LOIN Negative mg/dL C) UA Ketones Negative LAB BLDUA(LOIN Negative C) UA Blood Negative LAB PHUA(LOINC ) UA pH 6.5 LAB PROUA(LOIN Negative mg/dL C) UA Protein Negative LAB UROUA(LOIN E.U./dL C) UA Urobilinogen 0.2 LAB NITUA(LOIN Negative C) UA Nitrite Negative LAB LEUUA(LOIN Negative C) UA Leuk Est Negative Performed By: #### UAMICAO, UA #### [place] [address] .URINALYSIS MICROSCOPIC Collected: 01/01/2018 Status: F Source: MIKE (AO) 3:27 PM [facility] REPOSITORY TYPE CODE TESTS RESULT OUT OF REFERENCE UNITS RANGE LAB WBCUA(LOIN None Seen /hpf C) UA WBC None Seen LAB RBCUA(LOIN None Seen /hpf C) UA RBC None Seen LAB EPIUA(LOIN None Seen /hpf C) UA Squam Epithelial None Seen Performed By: #### UAMICAO, UA #### [place] [address] CT HEAD OR BRAIN W/O Observed: 01/01/2018 Status: F Source: [employer] CONTRAST 2:46 PM [facility] [place] REPOSITORY ORIGINAL CT HEAD OR BRAIN W/O CONTRAST Clinical Statement: syncopal episode TECHNIQUE: Axial CT images from skull base to vertex without IV contrast. This exam was performed according to our departmental dose optimization program, and includes the following measures where appli cable: automated exposure control, adjustment of the mAs and/or kVp according to patient size and/or exam, and an iterative reconstruction algorithm. COMPARISON: None. FINDINGS: There is no intracranial hemorrhage, mass effect, or abnormal extra-axial fluid collection. No CT evidence for large acute territorial infarct. Scattered foci of white matter hypoattenuation are noted in the cerebral white matter which are nonspecific but may represent mild chronic microvascular angiopathy in a patient of this age. There is pro portionate enlargement of the ventricular system and cortical sulci, compatible with mild parenchymal volume loss. Atherosclerotic calcifications are present in the intracranial arteries. The skull base and calvarium demonstrate no acute abnormality. The included paranasal sinuses and LEFT mastoid air cells are clear. There is a small amount nonspecific RIGHT mastoid fluid. IMPRESSION: No acute intracranial hemorrhage, hydrocephalus, or mass effect. Interpreted By: Camille Jung MD Preliminary Report By: Camille Jung MD Electronically Signed By: Camille Jung MD Dictated Date: 01/01/2018 2:54:33 PM Prelim Date: 01/01/2018 2:54:33 PM Sign Date: 01/01/2018 2:57:53 PM XR CHEST 2 VIEWS Observed: 01/01/2018 Status: F Source: MIKE [employer] 2:46 PM [facility] [place] REPOSITORY ORIGINAL XR CHEST 2 VIEWS CLINICAL STATEMENT: syncopal episode. COMPARISON: 12/15/2017 FINDINGS: The heart is not enlarged. There is no vascular congestion or focal infiltrate. No pleural abnormality is seen. Healed right- sided rib fractures are demonstrated. IMPRESSION: No acute process. Interpreted By: Renee Marquez MD Preliminary Report By: Renee Marquez MD Electronically Signed By: Renee Marquez MD Dictated Date: 01/01/2018 3:16:16 PM Prelim Date: 01/01/2018 3:16:16 PM Sign Date: 01/01/2018 3:16:59 PM CBC Collected: 01/01/2018 Status: F Source: [facility] [employer] 2:29 PM [facility] [place] REPOSITORY TYPE CODE TESTS RESULT OUT OF REFERENCE UNITS RANGE LAB WBC(LOINC) 4.60-10.80 10 3/mcL WBC 9.70 LAB RBCCT(LOINC 4.04-6.13 10 6/mcL ) RBC 5.44 LAB HGB(LOINC) 14.0-18.0 G/dL Hgb 16.7 LAB HCT(LOINC) 42.0-52.0 % Hct 48.6 LAB MCV(LOINC) 80.0-94.0 fL MCV 89.2 LAB MCH(LOINC) 27.0-31.2 pg MCH 30.6 LAB MCHC(LOINC) 31.8-35.4 G/dL MCHC 34.3 LAB RDW(LOINC) 11.5-14.5 % RDW 13.3 LAB PLT(LOINC) 130-400 10 3/mcL Platelet 247 LAB MPV(LOINC) 7.4-10.4 fL MPV 8.9 Performed By: #### ANEU, ADIFF, CBC, GFR, CMP, TROP #### [address] [address] .AUTO DIFF Collected: 01/01/2018 Status: F Source: [facility] 2:29 [facility] [place] REPOSITORY TYPE CODE TESTS RESULT OUT OF REFERENCE UNITS RANGE LAB PHILIPPE(LOINC) 37.0-80.0 % Neutrophil % 62.3 LAB LYM(LOINC) 10.0-50.0 % Lymphocyte % 25.5 LAB MON(LOINC) 1.7-13.0 % Monocyte % 7.6 LAB EO(LOINC) 0.0-7.0 % Eosinophil % 4.2 LAB BAS(LOINC) 0.0-2.5 % Basophil % 0.4 LAB ABLYM(LOIN 0.77-3.85 10 3/mcL C) Lymphocyte, 2.50 Absolute LAB PAIGE(LOINC 0.15-1.00 10 3/mcL ) Monocyte, 0.70 Absolute LAB AEOS(LOINC 0.00-0.40 10 3/mcL ) Eosinophil, 0.40 Absolute LAB ABAS(LOINC 0.00-0.19 10 3/mcL ) Basophil, 0.00 Absolute Performed By: #### ANEU, ADIFF, CBC, GFR, CMP, TROP #### [address] [address] .NEUABS Collected: 01/01/2018 Status: F Source: [facility] 2:29 PM [facility] [place] REPOSITORY TYPE CODE TESTS RESULT OUT OF REFERENCE UNITS RANGE LAB ANEU(LOINC) 2.85-6.16 10 3/mcL Neutrophil, 6.10 Absolute Performed By: #### ANEU, ADIFF, CBC, GFR, CMP, TROP #### [place] [id number] [place], [place] [address] TROP Collected: 01/01/2018 Status: F Source: [facility] 2:29 [facility] [place] REPOSITORY TYPE CODE TESTS RESULT OUT OF REFERENCE UNITS RANGE LAB TROP(LOINC) 0.00-0.30 ng/mL Troponin <0.30 Result Comment: Below measuring range >=0.30 Consistent with cardiac damage, increased clinical risk and possibility of myocardial infarction. Serial measurements, clinical history, appropriate symptoms and/or ECG changes may help assess possibility of DE. *Other non-acute coronary syndrome conditions such as CHF, myocarditis, pulmonary emboli, sepsis and cardiac surgery could result in myocardial damage and increased troponin levels. Performed By: #### ANEU, ADIFF, CBC, GFR, CMP, TROP #### [address] [address] CMP Collected: 01/01/2018 Status: F Source: [facility] 2:29 [facility] [place] REPOSITORY TYPE CODE TESTS RESULT OUT OF REFERENCE UNITS RANGE LAB GLU(LOINC) 80-115 mg/dL Glucose High Level 135 LAB NA(LOINC) 136-146 mEq/L Sodium Level 141 LAB K(LOINC) 3.5-5.1 mEq/L Potassium Level 4.0 LAB CL(LOINC) 98-107 mEq/L Chloride 106 LAB CO2(LOINC) 23-31 mEq/L CO2 26 LAB EBAL(LOINC mEq/L ) Electrolyte Balance 9.0 LAB BUN(LOINC) 7.0-18.0 mg/dL BUN 14.7 LAB CRE(LOINC) 0.6-1.2 mg/dL Creatinine Lvl (s) 0.9 LAB BC(LOINC) 7-27 ratio BUN/Creatinine 16 Ratio LAB CA(LOINC) 8.4-10.2 mg/dL Calcium Lvl 10.0 LAB PROT(LOINC 6.0-8.3 G/dL ) Total Protein 6.8 LAB ALB(LOINC) 3.4-4.8 G/dL Albumin Level 4.4 LAB GLB(LOINC) G/dL Globulin 2.4 LAB AG(LOINC) 1.1-2.5 ratio A/G Ratio 1.8 LAB BILT(LOINC 0.2-1.0 mg/dL ) Bili Total 0.4 LAB AP(LOINC) 40-135 IU/L Alk Phos 80 LAB AST(LOINC) 10-40 IU/L AST/SGOT 15 LAB ALT(LOINC) 10-35 IU/L ALT/SGPT 19 Performed By: #### ANEU, ADIFF, CBC, GFR, CMP, TROP #### [place] [address] [place], [place] [address] .GFR Collected: 01/01/2018 Status: F Source: [employer] 2:29 PM [facility] REPOSITORY TYPE CODE TESTS RESULT OUT OF REFERENCE UNITS RANGE LAB GFRAA(LOINC ml/min/1.73 ) sqm GFR >60 Citizen Of [place] Result Comment: GFR Population mean for , Non- Americans Ages 20-29 = 116 mL/min/1.73 sq.m. Ages 30-39 = 107 mL/min/1.73 sq.m. Ages 40-49 = 99 mL/min/1.73 sq.m. Ages 50-59 = 93 mL/min/1.73 sq.m. Ages 60-69 = 85 mL/min/1.73 sq.m. Ages 70+ = 75 mL/min/1.73 sq.m. Chronic Kidney Disease: Less than 60 mL/min/1.73 square meters End Stage Renal Disease: Less than 15 mL/min/1.73 square meters LAB GFRNO(LOINC) ml/min/1.73sqm GFR Non- >60 Result Comment: GFR Population mean for , Non- Americans Ages 20-29 = 116 mL/min/1.73 sq.m. Ages 30-39 = 107 mL/min/1.73 sq.m. Ages 40-49 = 99 mL/min/1.73 sq.m. Ages 50-59 = 93 mL/min/1.73 sq.m. Ages 60-69 = 85 mL/min/1.73 sq.m. Ages 70+ = 75 mL/min/1.73 sq.m. Chronic Kidney Disease: Less than 60 mL/min/1.73 square meters End Stage Renal Disease: Less than 15 mL/min/1.73 square meters Performed By: #### ANEU, ADIFF, CBC, GFR, CMP, TROP #### [place] [address] [place], [place] [address] XR HIP MINIMUM 2 Observed: 12/15/2017 Status: F Source: [employer] VIEWS RIGHT 2:46 PM [facility] [place] REPOSITORY ORIGINAL XR HIP MINIMUM 2 VIEWS RIGHT CLINICAL STATEMENT: sob,pain. COMPARISON: None FINDINGS: No acute fracture or dislocation is identified. Mild degenerative changes are seen at the hip. No acute osseous abnormality. IMPRESSION: No acute osseous abnormality. Interpreted By: Erica Dumont MD Preliminary Report By: Erica Dumont MD Electronically Signed By: Erica Dumont MD Dictated Date: 12/15/2017 4:12:55 PM Prelim Date: 12/15/2017 4:13:04 PM Sign Date: 12/15/2017 7:20:59 PM XR SPINE LUMBAR Observed: 12/15/2017 Status: F Source: [facility] [employer] W/OBLIQUES 4 VIEWS 2:46 PM [facility] REPOSITORY ORIGINAL XR SPINE LUMBAR W/OBLIQUES 4 VIEWS CLINICAL STATEMENT: sob,pain COMPARISON: 10/01/2012 FINDINGS:Images of the lumbosacral spine including obliques were obtained demonstrating degenerative changes predominating at L4-L5 and L5- S1 as well as at in the lower thoracic levels visualized. Facet degenerative changes are present at all visualized levels predominating at L4-L5 and L5-S1 without a spondylolysis defect. There is a minimal spondylolisthesis of L4 on L5. Minimal superior endplate de pression of L1 is present. Vascular calcification is present along the aorta. IMPRESSION:Degenerative changes. Mild superior endplate depression of L1. This is unchanged from remote images Interpreted By: Marissa Beckham MD Preliminary Report By: Marissa Beckham MD Electronically Signed By: Marissa Beckham MD Dictated Date: 12/16/2017 11:41:15 AM Prelim Date: 12/16/2017 11:41:15 AM Sign Date: 12/16/2017 11:42:29 AM XR CHEST 2 VIEWS Observed: 12/15/2017 Status: F Source: [facility] [employer] 2:45 PM [facility] REPOSITORY ORIGINAL XR CHEST 2 VIEWS CLINICAL STATEMENT: sob,pain. COMPARISON: None FINDINGS: The cardiomediastinal contours are normal. There is no consolidation, vascular congestion, pleural effusion, or pneumothorax. No displaced fractures are identified. Diffuse moderate degenerati ve changes present throughout the spine IMPRESSION: No acute radiographic findings. Interpreted By: Marissa Beckham MD Preliminary Report By: Marissa Beckham MD Electronically Signed By: Marissa Beckham MD Dictated Date: 12/15/2017 3:27:50 PM Prelim Date: 12/15/2017 3:27:50 PM Sign Date: 12/15/2017 3:28:17 PM A1C Collected: 08/01/2017 Status: F Source: [facility] [employer] 6:05 AM [facility] [place] REPOSITORY TYPE CODE TESTS RESULT OUT OF RANGE REFERENCE UNITS LAB A1C(LOINC) 4.8-5.9 % High Hgb A1c 6.6 Performed By: #### GFR, CMP, LIPID, A1C #### [address] [place], [place] [address] LIPID Collected: 08/01/2017 Status: F Source: [facility] [employer] 6:05 AM [facility] [place] REPOSITORY TYPE CODE TESTS RESULT OUT OF REFERENCE UNITS RANGE LAB CHOL(LOINC 131-200 mg/dL ) Cholesterol High 219 Result Comment: Cholesterol Reference Interval: Less than 200 Desirable 200-239 Borderline high risk 240 and above High risk LAB TRIG(LOINC) 40-150 mg/dL Triglycerides High 195 Result Comment: Triglyceride Reference Interval: Less than 150 Normal 150-199 Borderline high risk 200-499 High risk 500 or higher Very high risk LAB HD(LOINC) 35-90 mg/dL HDL Cholesterol 46 Result Comment: HDL Reference Interval: Less than 40 Low - high risk 60 or above Optimal/lowers risk LAB LDL(LOINC) 0-130 mg/dL LDL High Cholesterol 134 Result Comment: LDL is a calculated result and requires a 12-hr fast. LDL Reference Interval: Less than 100 Optimal 100-129 Near or above optimal 130-159 Borderline high risk 160-189 High risk 190 and above Very high risk Performed By: #### GFR, CMP, LIPID, A1C #### [address] [place], [place] [address] CMP Collected: 08/01/2017 Status: F Source: [facility] [employer] 6:05 AM [facility] [place] REPOSITORY TYPE CODE TESTS RESULT OUT OF REFERENCE UNITS RANGE LAB 1547-9 80-115 mg/dL GLUCOSE High 150 LAB NA(LOINC) 136-146 mEq/L Sodium Level 138 LAB K(LOINC) 3.5-5.1 mEq/L Potassium Level 4.6 LAB CL(LOINC) 98-107 mEq/L Chloride 101 LAB CO2(LOINC) 23-31 mEq/L CO2 27 LAB EBAL(LOINC mEq/L ) Electrolyte Balance 10.0 LAB BUN(LOINC) 7.0-18.0 mg/dL BUN 17.9 LAB CRE(LOINC) 0.6-1.2 mg/dL Creatinine Lvl (s) 0.9 LAB BC(LOINC) 7-27 ratio BUN/Creatinine 20 Ratio LAB CA(LOINC) 8.4-10.2 mg/dL Calcium Lvl 9.7 LAB PROT(LOINC 6.0-8.3 G/dL ) Total Protein 7.3 LAB ALB(LOINC) 3.4-4.8 G/dL Albumin Level 4.4 LAB GLB(LOINC) G/dL Globulin 2.9 LAB AG(LOINC) 1.1-2.5 ratio A/G Ratio 1.5 LAB BILT(LOINC 0.2-1.0 mg/dL ) Bili Total 0.3 LAB AP(LOINC) 40-135 IU/L Alk Phos 85 LAB AST(LOINC) 10-40 IU/L AST/SGOT 16 LAB ALT(LOINC) 10-35 IU/L ALT/SGPT 20 Performed By: #### GFR, CMP, LIPID, A1C #### [address] [address] .GFR Collected: 08/01/2017 Status: F Source: [facility] 6:05 AM [facility] REPOSITORY TYPE CODE TESTS RESULT OUT OF REFERENCE UNITS RANGE LAB GFRAA(LOINC ml/min/1.73 ) sqm GFR 106 Citizen [place] Result Comment: GFR Population mean for , Non- Americans Ages 20-29 = 116 mL/min/1.73 sq.m. Ages 30-39 = 107 mL/min/1.73 sq.m. Ages 40-49 = 99 mL/min/1.73 sq.m. Ages 50-59 = 93 mL/min/1.73 sq.m. Ages 60-69 = 85 mL/min/1.73 sq.m. Ages 70+ = 75 mL/min/1.73 sq.m. Chronic Kidney Disease: Less than 60 mL/min/1.73 square meters End Stage Renal Disease: Less than 15 mL/min/1.73 square meters LAB GFRNO(LOINC) ml/min/1.73sqm GFR Non- >60 Result Comment: GFR Population mean for , Non- Americans Ages 20-29 = 116 mL/min/1.73 sq.m. Ages 30-39 = 107 mL/min/1.73 sq.m. Ages 40-49 = 99 mL/min/1.73 sq.m. Ages 50-59 = 93 mL/min/1.73 sq.m. Ages 60-69 = 85 mL/min/1.73 sq.m. Ages 70+ = 75 mL/min/1.73 sq.m. Chronic Kidney Disease: Less than 60 mL/min/1.73 square meters End Stage Renal Disease: Less than 15 mL/min/1.73 square meters Performed By: #### GFR, CMP, LIPID, A1C #### [place] [id number] ALLERGIES ALLERGIES DATE TYPE / CODE NAME / CODE REACTION SEVERITY SOURCE 05/11/2018 Drug morphine/[id number] Rash Unknown [facility] Allergy/416 1545(RXNORM) [facility] [id number](SNOM Repository ED CT) 01/03/2014 DRUG MORPHINE RASH [facility]/[address] [place] [address] 556363(SNOM Repository ED CT) ENCOUNTERS ENCOUNTERS ADMIT/DISCHARGE ACCOUNT NUMBER ADMITTING ENCOUNTER LOCATION SOURCE CLASS 05/12/2018 [id number] Ambulatory BMSBuilding: [facility] Repository 05/11/2018 [id number] Ambulatory BMSBuilding: [facility] Repository 05/11/2018/05/12/20 [id number] [facility] [address] ding:PCURoom Repository : [id number]: 1 05/11/2018 [id number] Misha Ambulatory BMSBuilding: [facility] Repository 05/11/2018 [id number] M[facility] Ambulatory BMSBuilding: [facility] Repository 01/17/2018/01/18/20 [id number] Emergency [address] ding:ED Repository 01/15/2018/01/17/20 [id number] Ambulatory [address] Repository 01/01/2018/01/02/20 [id number] Emergency BBuilding:ER Mike [facility] Repository 12/15/2017/12/16/19 [id number] Ambulatory MIKE Mckeon 18 [facility] ding:[facility] Repository 12/15/2017 [id number] Ambulatory BBuilding:RA Mike D [facility] Department Repository 08/01/2017/08/01/19 [id number] Ambulatory BBuilding:OL Mike 18 AB [facility] Emergency Department Repository PAYERS PAYERS ENCOUNTER GUARANTOR PAYER SUBSCRIBER SOURCE 05/12/2018 DOMINIK L Primary DOMINIK Sánchez [id number] Insurance:LITO MOSQUERAONDOB: Community [address] MED[address] SENIOR [id number] ADVANTAPolicy Number: Repository [id number]: 330 [id number] [phone] () Date:[id number] [address]CX: 05/12/2018 Secondary NOT GIVENUNK Princess Insurance:SELF PAY [facility] Number: Effective Repository Date:2018-05-12 05/11/2018 DOMINIK L Primary DOMINIK Sánchez [id number] Insurance:LITO MOSQUERAONDOB: Community [address] MEDIC[address] SENIOR [id number] ADVANTAPoly Number: Repository [id number]: 330 [id number] [phone] () Date:[id number] [address] [place] [address]JQ: 05/11/2018 Secondary NOT GIVENUNK Princess Insurance:SELF PAY [facility] Number: Effective Repository Date:2018-05-11 05/11/2018 DOMINIK L Primary DOMINIK Sánchez [id number] Insurance:LITO MOSQUERAONDOB: Community [address] MEDIC[address] SENIOR [id number] [address] StreetAPoly Number: Repository [id number]: (330 [id number] [phone] (HP) Date:[id number] [address] [place] [address]IZ: 05/11/2018 Secondary NOT GIVENUNK Princess Insurance:SELF PAY [facility] Number: Effective Repository Date:2018-05-11 05/11/2018 DOMINIK L Primary DOMINIK L Elmo [id number] Insurance:ANTHEM FELTONDOB: Community [address] MEDIC[address] SENIOR [id number] ADVANTAPolicy Number: Repository [id number]: (330 [id number] [phone] (HP) Date:[id number] [address] [place] [address]ER: 05/11/2018 Secondary NOT GIVENUNK Elmo Insurance:SELF PAY [facility] Number: Effective Repository Date:2018-05-11 05/11/2018 DOMINIK L Primary DOMINIK L Elmo [id number] Insurance:ANTHEM FELTONDOB: Community [address] MEDIC[address] SENIOR [id number] ADVANTAPolicy Number: Repository [id number]: (330 [id number] [phone] (HP) Date:[id number] [address] [place] [address] 160[address]TF: 05/11/2018 Secondary NOT GIVENUNK Princess Insurance:SELF PAY [facility] Number: Effective Repository Date:2018-05-11 01/17/2018 Dominik L Primary NOT GIVENUNK Princess [id number] Insurance:SELF PAY [place] Number: Effective Repository [id number]: (330) Date:2018-01-17 [phone] ([phone] 01/01/2018 DOMINIK L Primary DOMINIK Duncan [facility] FELTONDOB: Insurance:MEDICARE FELTONDOB: [facility] [id number] N PART BPolicy Number: [id number] Repository [facility] [id number] N [facility] [place] Date:2018-01-01 - [place], [place] [address]Xnw: [id number]: () Name:[facility] [phone] [employer] ()Tel: (000) [address] [address]Dilhwrhyz, 000-0000 ([place]) [place] [address]EA: 12/15/2017 DOMINIK L Primary [facility] FELTONDOB: Insurance:MEDICARE FELTONDOB: [facility] N PART BPolicy Number: [id number] Repository [facility] KRYS [id number] [address] [place], [place] Date:2017-12-15 - [place], [place] [address]Nrr: [phone] [id number] [phone]: () Name:[place] [id number] [employer] ()Tel: (000) [address] [address]Amnefvrio, 000-0000 ([place]) [place] [address]NS: 12/15/2017 DOMINIK Duncan Primary DOMINIK Duncan [facility] FELTONDOB: Insurance:CARESOURCE FELTONDOB: [facility] N [facility] [id number] Repository [facility] DUALPolicy Number: [address] [place], [place] [id number] [place], [place] [address]Won: (330) Date:2017-12-1588443Bjf: (HP) [id number] [phone] Name:MILLIETAttila Anguiano ()Tel: (000) DeptPO [address] ([place]) [address], [place] [address]ZG: 08/01/2017 DOMINIK L Primary [facility]INIK [facility] FELTONDOB: Insurance:SELF FELTONDOB: [facility] N PAYPolicy Number: [id number] Repository [address] [place], [place] Date:2017-08-01 - [place], [place] [address]Pit: [phone] [id number] Name:[id number]: () [phone] () ()
== END 2018-05-12 11:57 | disposition home or self-care (01) ==
LOC: ED 15:29 → PCU 16:10
PROVIDERS: Admitting Provider Internal Medicine; Emergency Provider Emergency Medicine; Family Provider Nurse Practitioner Primary Care; PCP Nurse Practitioner Primary Care; Visit Provider Internal Medicine
DX: R07.89 Other chest pain (principal); E78.5 Hyperlipidemia, unspecified; J44.9 Chronic obstructive pulmonary disease, unspecified; I10 Essential (primary) hypertension; E11.65 Type 2 diabetes mellitus with hyperglycemia; F17.210 Nicotine dependence, cigarettes, uncomplicated; Z79.899 Other long term (current) drug therapy; Z79.84 Long term (current) use of oral hypoglycemic drugs; Z79.82 Long term (current) use of aspirin
CPT/HCPCS: 36415; 71045; 78452; 80048; 80061; 80076; 82962; 83036; 83690; 83735; 84443; 84484; 85025; 85027; 85610; 85730; 93005; 93017; 96361; 96372; 96374; 99218; 99282; A9500; J7030; A4216; G0378; J2405; J2785

== ENCOUNTER 2020-03-01 15:25 | Emergency (ER) | payer MEDICARE, MEDICAID, SELFPAY ==
[2018-05-11 17:03] VITALS: BMI 32.1
[2020-03-01 15:26] VITALS: BP 104/76; PULSE 97; RESP 18; TEMP 36.4; O2SAT 96; BMI 31.4
[2020-03-01 15:47] LABS: Absolute Lymphocyte Count 2.54 X10^3/uL (0.83-4.51); Absolute Neutrophil Count 9.1 X10^3/uL (2.0-7.7); Basophil# 0.05 X10^3/uL; Basophil% 0.4 % (0-1); Eosinophil# 0.29 X10^3/uL; Eosinophils% 2.2 % (0-5); Lymphocyte # 2.54 X10^3/ul (4.0); Lymphocyte % 19.2 % (19-41); Mean Corp Hgb Conc 32.3 g/dL (32-36); Mean Corpuscular Hgb 29.1 pg (27.0-32.0); Mean Platelet Vol. 10.3 fl (6.2-12.0); Monocyte% 8.3 % (0-10); NRBC Flagged by Analyzer 0 % (0-5); Neutrophil # 9.05 X10^3/uL (2.7-7.7); Neutrophil % 68.4 % (47-70); Platelet Count 302 K/mm3 (150-450); RBC Distribution Width CV 13.2 % (11.6-14.6); RBC Distribution Width SD 43.9 fl (35.1-43.9); Red Blood Count 6.47 M/mm3 (4.6-6.2); White Blood Count 13.2 K/mm3 (4.4-11.0)
[2020-03-01 15:50] LABS: Hematocrit 58.2 % (40-54)
[2020-03-01 15:51] LABS: Hemoglobin 18.8 g/dL (13.0-16.5)
[2020-03-01 16:07] LABS: Anion Gap 3 (5-15); BUN 16 mg/dL (7-18); BUN/Creat Ratio 15.4 RATIO (10-20); Calcium,Total 9.9 mg/dL (8.5-10.1); Chloride 105 mmol/L (98-107); Creatinine, Serum 1.04 mg/dL (0.70-1.30); EST Glomerular Filtration Rate 76 mL/min (>60); Est Glom Filt Rate - Afr Amer 91 mL/min (>60); Glucose 144 mg/dL (74-106); Potassium 4.3 mmol/L (3.5-5.1); Sodium Level 137 mmol/L (136-145)
--- NOTE | 2020-03-01 16:58 | CT_ITS ---
STUDY: CT ABDOMEN AND PELVIS WITHOUT CONTRAST REASON FOR EXAM: Male, 69 years old. Right lower quadrant pain for 2 days. Poor appetite. Sent to the ER by primary care physician. RADIATION DOSAGE (If Supplied By Facility): CTDIvol = ( 15.00 ) mGy, DLP = ( 1053.45 ) mGycm TECHNIQUE: Transaxial images were obtained from the dome of the diaphragm to the symphysis pubis without oral contrast, and without intravenous contrast. Sagittal and coronal images were reconstructed. Individualized dose optimization techniques were used for this CT. COMPARISON: None. FINDINGS: The visualized lung bases are unremarkable. The visualized portions of the heart are within normal limits. Normal liver. There is a soft tissue density in the gallbladder fundus. Mass versus polyp. Gallbladder is otherwise unremarkable. There is no biliary ductal dilatation. Normal spleen. Normal pancreas. Normal bilateral adrenal glands. There is a 1.6 cm cyst in the upper pole of an otherwise normal right kidney. Normal left kidney. Normal visualized ureters. Normal visualized stomach. Normal small intestine. Normal colon. The appendix is visualized and appears normal. There is diffuse subcentimeter lymphadenopathy throughout the small bowel mesentery. There is diffuse atherosclerotic calcification of the abdominal aorta, without a demonstrated aneurysm. Normal inferior vena cava. Normal retroperitoneum. Normal urinary bladder. The prostate is normal in size. There is a central calcification. There is no pelvic lymphadenopathy. No free air or free fluid is seen within the peritoneal cavity. Normal abdominal wall. There are diffuse degenerative changes of the visualized lumbar spine. CT/Abdomen/Pelvis W IV Cont ONLY IMPRESSION: 1. Normal appendix. 2. There is diffuse subcentimeter mesenteric lymphadenopathy. Question mesenteric adenitis. 3. Small mass in the gallbladder fundus. Question polyp. This could be further evaluated sonographically. 4. Degenerative changes of the lumbar spine. 5. Atherosclerotic changes of the abdominal aorta. Electronically Signed: Lj Ulrich DO at 17:49 EDT Tel [phone], Service support ,
--- NOTE | 2020-03-01 16:59 | ED.VIS.GI ---
History of Present Illness Chief Complaint: Abd Pain Informant: Patient - Abdominal Pain/Flank Pain Onset: Days Context: Gradual Onset Timing: Continuous Quality: Sharp Location: RLQ Worsened by: Food Relieved by: Nothing - Nausea/Vomiting/Emesis GI Symptom: Negative for: Nausea, Vomiting - Diarrhea/Melena/Hematochezia GI Symptom: Negative for: Diarrhea, Melena, Hematochezia Narrative: Patient is a 69-year-old male with history of COPD presenting with abdominal pain. He states he has had pain for the past 3 to 4 days. He states it seems to start his epigastric area and then radiate down. He has had decreased appetite and eating seems to make it worse. Has a hard time describing the pain further to stating that it hurts. He is not tried taking anything at home [id number] for his symptoms. He called his doctor who recommend he come to the ER for a CAT scan and lab work. Patient has any history of any abdominal surgeries. He has been feeling bloated and constipated. He tried to have a bowel movement today but only a small amount came out. He denies any black or blood in his stool that he noticed. Patient denies any fever or chills. He denies any other complaints at this time. He is never had anything like this before. Past Medical History - Allergies and Home Meds Allergies/Adverse Reactions: Allergies morphine Allergy (Verified 03/01/20 15:25) Rash Primary Care Physician: Susana Ruiz GRAPHIC PRODUCTION ARTIST, GRAPHIC PRODUCTION ARTIST-C [Primary Care Provider] - Past Medical History: - - COPD Surgical History: noncontributory, - - knee surgery, R shoulder sx, eye sx Smoking Status: Current every day smoker Alcohol: None Drugs: None - Family History Maternal Family History: Reports: No pertinent history Paternal Family History: Reports: Stroke Sibling Family History: Reports: Cancer Review of Systems General: Denies: Chills, Fever, Sweats Eyes: Denies: Visual changes - bilaterally, Diplopia ENT: Denies: Rhinorrhea, Sore throat Cardiovascular: Denies: Chest pain, Palpitations Respiratory: Denies: Dyspnea, Cough, Dyspnea on exertion Gastrointestinal: Reports: Abdominal pain, Constipation. Denies: Nausea, Vomiting, Diarrhea, Melena, Hematochezia Genitourinary: Denies: Dysuria, Hematuria, Frequency Musculoskeletal: Denies: Back pain, Extremity Pain Skin: Denies: Rash, Wounds Neurological: Denies: Headache, Weakness, Numbness Physical Exam Vital Signs/Narrative: Vital Signs Temp Pulse Resp BP Pulse Ox 03/01/20 15:26 97.6 F L 97 18 104/76 96 Inital Vital Signs reviewed: Yes General: Well nourished, Well developed, No Acute Distress Head: Normocephalic, Atraumatic Eyes: Perrl, EOMI ENT: Moist mucous membranes, No rhinorrhea Neck: Supple, Nontender Cardiovascular: Regular rate, Regular rhythm, No murmurs Respiratory: No distress, CTA bilaterally, Chest nontender Abdomen: Soft, Nondistended, Normal bowel sounds, Tender, Rebound tenderness, Hypoactive bowel sounds, - - Pain at McBurney's point. Negative for: Guarding, Pulsatile mass, Psoas sign, Obturator sign, Rovsig's sign Back: Nontender, Normal Inspection. Negative for: CVA tenderness Extremities: Nontender, No edema Skin: Normal color, No rash Neurological: Alert, Oriented x3, Cranial nerves II-XII grossly intact, Normal Strength, Normal Sensation Psychological: Normal affect, Normal Mood Diagnostic/Tx/Re-eval Clinical Impression(s) from Imaging Studies Abdomen/Pelvis CT 03/01/20 16:58 IMPRESSION: 1. Normal appendix. 2. There is diffuse subcentimeter mesenteric lymphadenopathy. Question mesenteric adenitis. 3. Small mass in the gallbladder fundus. Question polyp. This could be further evaluated sonographically. 4. Degenerative changes of the lumbar spine. 5. Atherosclerotic changes of the abdominal aorta. Electronically Signed: Lj Ulrich DO at 17:49 EDT Tel [phone], Service support , Laboratory Data 03/01/20 03/01/20 03/01/20 15:38 15:38 15:38 WBC 13.2 H RBC 6.47 H Hgb 18.8 H* Hct 58.2 H MCV 90.0 MCH 29.1 MCHC 32.3 RDW Std Deviation 43.9 RDW Coeff of Tan 13.2 Plt Count 302 MPV 10.3 Immature Gran % (Auto) 1.500 H Neut % (Auto) 68.4 Lymph % (Auto) 19.2 [place] % (Auto) 8.3 Eos % (Auto) 2.2 Baso % (Auto) 0.4 Absolute Neuts (auto) 9.1 H Absolute Lymphs (auto) 2.54 Nucleated RBC % 0 Sodium 137 Potassium 4.3 Chloride 105 Carbon Dioxide 29.0 Anion Gap 3 L BUN 16 Creatinine 1.04 Estim Creat Clear Calc 62.20 Est GFR (MDRD) Af Amer 91 Est GFR (MDRD) Non-Af 76 BUN/Creatinine Ratio 15.4 Glucose 144 H Calcium 9.9 Total Bilirubin 0.50 Direct Bilirubin 0.17 AST 9 L ALT 19 Alkaline Phosphatase 105 Total Protein 8.0 Albumin 3.9 Globulin 4.1 Lipase 341 - Medical Decision Making Patient evaluated for diffuse abdominal pain. He appears nontoxic in no acute distress. His vital signs are normal. His abdomen is tender in the right lower quadrant. Patient has a very mild leukocytosis and a elevated hemoglobin. Patient is a smoker which is likely why he has an elevated hemoglobin. He is not have any other significant laboratory abnormalities. CT of the abdomen and pelvis is consistent with mesenteric adenitis. He is also found to have a gallbladder polyp in the fundus. He did have pain in his right upper quadrant and does not have elevated liver enzymes or bilirubin. No signs of inflammation on the CT of the gallbladder. Patient is informed of the fundus mass and does need for outpatient follow-up. He is instructed to alternate ibuprofen and Tylenol as needed for pain control. Patient does not provide a urine sample in the emergency room and is comfortable being discharged home without checking his urine. He denies any urinary symptoms is not concerned for UTI. Patient is counseled that we could be missing a kidney infection however he does not have any CVA tenderness. Patient is counseled on signs and symptoms requiring return to the emergency room. Patient verbalizes agreement and understand this plan. Patient discharged home in stable and improved condition. ED Disposition - Plan for ED Patient: Disposition: Home or Assisted Living Diagnosis: Mesenteric adenitis, Mass of gallbladder Instructions: ED Adenitis Mesenteric Referrals: Susana Ruiz NP, [employer]APH[employer] PRODUCTION ARTIST-C [Primary Care Provider] - Additional Instructions: Your CT of your abdomen showed enlarged lymph nodes of this is likely was causing your discomfort. You can alternate Tylenol and ibuprofen for this. Return with any significantly worsening symptoms. Your CT also showed a mass, possibly a polyp on your gallbladder. This is not associate with your pain today but needs to be followed up by your primary care doctor. Please follow-up with her about this.
[2020-03-01] MEDS: 0.9% Normal Saline 1,000 ML 999 ML IV (17:25)
[2020-03-01 17:55] LABS: AST(SGOT) 9 U/L (15-37); Alanine Aminotransfer ALT/SGPT 19 U/L (16-61); Albumin, Serum 3.9 g/dL (3.2-5.0); Alkaline Phosphatase 105 U/L (45-117); Bilirubin, Direct 0.17 mg/dL (0.00-0.30); Globulin 4.1 g/dL (2.2-4.2); Lipase 341 U/L (73-393)
[2020-03-01 18:54] VITALS: BP 121/84; PULSE 91; RESP 16; O2SAT 97
== END 2020-03-01 18:56 | disposition home or self-care (01) ==
PROVIDERS: Emergency Provider Emergency Medicine; PCP Nurse Practitioner Primary Care
DX: K82.9 Disease of gallbladder, unspecified (principal); I88.0 Nonspecific mesenteric lymphadenitis; J44.9 Chronic obstructive pulmonary disease, unspecified; F17.200 Nicotine dependence, unspecified, uncomplicated
CPT/HCPCS: 74177; 80048; 80076; 83690; 85025; 96360; 96361; 99283; J7030; Q9967; A4216

== ENCOUNTER → 2020-03-20 | Outpatient (CLI) | payer MEDICARE, MEDICAID, SELFPAY ==
[2020-03-01 15:26] VITALS: BMI 31.4
[2020-03-20 15:16] LABS: Hematocrit 53.2 % (40-54); Mean Corpuscular Hgb 29.4 pg (27.0-32.0); Mean Corpuscular Volume 91.9 fL (80-94); Mean Platelet Vol. 10.8 fl (6.2-12.0); Platelet Count 248 K/mm3 (150-450); RBC Distribution Width CV 13.2 % (11.6-14.6); RBC Distribution Width SD 45.2 fl (35.1-43.9); Red Blood Count 5.79 M/mm3 (4.6-6.2); White Blood Count 11.1 K/mm3 (4.4-11.0)
[2020-03-20 15:50] LABS: ALB/GLOB Ratio 1.1 RATIO (0.9-2.4); AST(SGOT) 13 U/L (15-37); Alanine Aminotransfer ALT/SGPT 22 U/L (16-61); Alkaline Phosphatase 79 U/L (45-117); Anion Gap 3 (5-15); BUN 18 mg/dL (7-18); BUN/Creat Ratio 16.7 RATIO (10-20); Calcium,Total 9.4 mg/dL (8.5-10.1); Chloride 108 mmol/L (98-107); Creatinine, Serum 1.08 mg/dL (0.70-1.30); EST Glomerular Filtration Rate 72 mL/min (>60); Est Glom Filt Rate - Afr Amer 88 mL/min (>60); Globulin 3.7 g/dL (2.2-4.2); Glucose 86 mg/dL (74-106); Potassium 4.5 mmol/L (3.5-5.1); Protein, Total 7.7 g/dL (6.4-8.2); Sodium Level 139 mmol/L (136-145)
== END | disposition home or self-care (01) ==
LOC: LAB 14:45
PROVIDERS: PCP Nurse Practitioner Primary Care; Visit Provider Nurse Practitioner Primary Care
DX: D72.829 Elevated white blood cell count, unspecified (principal)
CPT/HCPCS: 36415; 80053; 85027

== ENCOUNTER 2021-02-27 08:32 | Emergency (ER) | payer MEDICARE, MEDICAID, SELFPAY ==
[2021-02-27 08:33] VITALS: BP 139/84; PULSE 85; RESP 14; TEMP 36.8; O2SAT 95; BMI 29.4
--- NOTE | 2021-02-27 08:34 | RAD_ITS ---
STUDY: X-RAY CHEST REASON FOR EXAM: Male, 70 years old. Chest pain TECHNIQUE: Single AP portable view of the chest. COMPARISON: Comparison is made with prior study dated 05/11/2018. FINDINGS: EKG electrodes are seen. Hyperinflation. There is no demonstrated pleural abnormality. Normal size heart. Normal mediastinum and kelli. Normal visualized pulmonary arteries. Normal visualized aortic arch and descending thoracic aorta. There are diffuse degenerative changes of the visualized thoracic spine. Normal visualized ribs, clavicles, and shoulders. There is no demonstrated abnormality of the visualized soft tissue structures of the upper abdomen. RAD/Chest 1 View (Portable) IMPRESSION: Hyperinflation. The lungs are clear. Electronically Signed: Doc Trimble MD at 9:13 EDT , Service support ,
--- NOTE | 2021-02-27 08:34 | EKG12_ITS ---
Test Reason : CP Blood Pressure : / mmHG Vent. Rate : 085 BPM Atrial Rate : 085 BPM P-R Int : 124 ms QRS Dur : 090 ms QT Int : 370 ms P-R-T Axes : 075 052 062 degrees QTc Int : 440 ms Normal sinus rhythm with sinus arrhythmia Low voltage QRS (Limb Leads) Confirmed by AKBAR OZUNA, MARINE ([id number]), assignment desk editor STACEY BELL ([id number]) on 02/28/2021 1:22:19 PM Referred By: [place] Confirmed By:MARINE WEBBER MD
--- NOTE | 2021-02-27 08:39 | EDS_ITS ---
HPI History of Present Illness Chief Complaint: Chest Pain Narrative Narrative: 70-year-old male presenting with chest pain. He describes it as retrosternal. This started about 7 AM. Patient states he felt lightheaded this morning. He checked his blood pressure with a wrist blood pressure cuff and states that his blood pressure was in the 70s this morning. He decided he would not take his blood pressure medicine. Patient states he does not feel lightheaded currently. Patient is a past medical history of hyperlipidemia, diabetes, hypertension. He denies cardiac history. Patient was given nitroglycerin prior to arrival and states that it did calm his chest pain down a little bit. He denies fever, chills, cough. [facility] Medical History Diabetes Hypertension Home Medications albuterol sulfate 2 puff INHALATION Q4H PRN PRN #1 inhaler 01/17/18 [Rx Last Taken Unknown] atorvastatin 20 mg PO QHS 01/17/18 [History Last Taken 05/10/18] fluticasone propionate 1 spray NASAL BID #1 bottle 01/17/18 [Rx Last Taken Unknown] lisinopril 10 mg PO DAILY 01/17/18 [History Last Taken 05/11/18] metformin 500 mg PO DAILY 01/17/18 [History Last Taken 05/11/18] aspirin 81 mg PO DAILY 05/11/18 [History Last Taken 05/11/18] erythromycin 1 applic LEFT EYE DAILY 05/11/18 [History Last Taken 05/10/18] guaifenesin [Mucus Relief ER] 1,200 mg PO BID 05/11/18 [History Last Taken 05/10/18] meloxicam 7.5 mg PO DAILY PRN PRN 05/11/18 [History Last Taken 05/11/18] nitroglycerin 0.4 mg PO PRN PRN 05/11/18 [History Last Taken Unknown] Allergy/AdvReac Type Severity Reaction Status Date / Time morphine Allergy Rash Verified 03/01/20 15:25 clopidogrel [From Plavix] AdvReac Other Verified 02/27/21 08:41 Social History Smoking Status: Current every day smoker tobacco type: cigarettes ROS ROS ED Constitutional Constitutional ED: Reports other Details: Lightheadedness ; Denies chills, fever(s) or sweats Eyes Eyes: Denies blurry vision or change in vision ENT ENT ED: Denies rhinorrhea or sore throat Cardiovascular Cardiovascular: Reports chest pain; Denies palpitations Respiratory/Chest Respiratory/Chest: Denies cough or dyspnea Gastrointestinal Gastrointestinal: Denies abdominal pain, nausea or vomiting Genitourinary Genitourinary ED: Denies dysuria or hematuria Musculoskeletal Musculoskeletal: Denies arthralgias or myalgias Integumentary Denies abscess or rash Neurologic Neurologic: Denies headache(s) or paresthesias EXAM Physical Exam Const Vital Signs: 02/27/21 08:33 02/27/21 08:36 02/27/21 11:03 Temperature 98.2 F Temperature Source Temporal Pulse Rate 85 62 Respiratory Rate 14 13 Blood Pressure 139/84 H 133/76 H Blood Pressure Mean 102 95 Pulse Ox 95 95 Oxygen Delivery Method Room Air Room Air Room Air 02/27/21 11:33 Temperature Temperature Source Pulse Rate 65 Respiratory Rate 16 Blood Pressure 125/88 H Blood Pressure Mean Pulse Ox 98 Oxygen Delivery Method HEENT normocephalic and atraumatic Eyes PERRL and EOMs intact bilaterally Neck no lymphadenopathy and supple Resp normal respiratory effort Effort and Inspection: respiratory distress Cardio regular rate and regular rhythm Extremity normal to inspection General Extremety ED: Yes tenderness Neuro oriented x3 Sensorium / Orientation: awake and alert Psych mental status grossly normal Skin no rashes or lesions noted MDM MDM MDM Narrative Medical decision making narrative: 70-year-old male presenting with chest pain. He states he got aspirin prior to arrival. He also states he took 2 nitroglycerin. EKG performed on arrival and on my interpretation shows normal sinus rhythm without sign of ischemic change. Chest x-ray on my interpretation shows no acute cardiopulmonary process and the radiologist does agree. Patient patient does not have a leukocytosis. Hemoglobin is concentrated. D-dimer is negative. Renal function is normal. Initial troponin is 7 and repeat troponin at 2 hours is 6. I feel at this time patient is stable for discharge home. Is given return precautions. Impression: 1. Chest pain Lab Data Labs: Laboratory Results - last 24 hr 02/27/21 02/27/21 02/27/21 08:15 08:15 10:20 WBC 8.6 RBC 5.98 Hgb 18.0 H* Hct 54.6 H MCV 91.3 MCH 30.1 MCHC 33.0 RDW Std Deviation 45.1 H RDW Coeff of Tan 13.3 Plt Count 293 MPV 10.0 Immature Gran % (Auto) 0.700 Neut % (Auto) 60.9 Lymph % (Auto) 25.4 [place] % (Auto) 9.6 Eos % (Auto) 2.0 Baso % (Auto) 1.4 H Absolute Neuts (auto) 5.3 Absolute Lymphs (auto) 2.19 Nucleated RBC % 0 D-Dimer Quant (PE/DVT) 0.39 Sodium 140 Potassium 3.9 Chloride 106 Carbon Dioxide 26.0 Anion Gap 8 BUN 18 Creatinine 0.83 Estim Creat Clear Calc 76.87 Est GFR (MDRD) Af Amer 118 Est GFR (MDRD) Non-Af 98 BUN/Creatinine Ratio 21.7 H Glucose 87 Calcium 9.8 Troponin I High Sens 7 02/27/21 10:41 WBC RBC Hgb Hct MCV MCH MCHC RDW Std Deviation RDW Coeff of Tan Plt Count MPV Immature Gran % (Auto) Neut % (Auto) Lymph % (Auto) [place] % (Auto) Eos % (Auto) Baso % (Auto) Absolute Neuts (auto) Absolute Lymphs (auto) Nucleated RBC % D-Dimer Quant (PE/DVT) Sodium Potassium Chloride Carbon Dioxide Anion Gap BUN Creatinine Estim Creat Clear Calc Est GFR (MDRD) Af Amer Est GFR (MDRD) Non-Af BUN/Creatinine Ratio Glucose Calcium Troponin I High Sens 6 Radiography Diagnostic Testing: Radiology Impression Chest X-Ray 02/27/21 08:34 IMPRESSION: Hyperinflation. The lungs are clear. Electronically Signed: Doc Trimble MD at 9:13 EDT , Service support , Discharge Plan Triage Chief Complaint: Chest Pain ED Provider: Aleks Mejia Dx/Rx/DC Orders Instructions: ED Chest Pain [facility] Prescriptions: No Action metformin 500 MG tablet 500 mg PO DAILY RF: 0 atorvastatin 20 MG tablet 20 mg PO QHS RF: 0 lisinopril 10 MG tablet 10 mg PO DAILY RF: 0 albuterol sulfate 1 INHALER inhaler 2 puff INHALATION Q4H PRN PRN (Reason: Wheezing) Qty: 1 RF: 0 fluticasone propionate 1 SPRAY spray,suspension 1 spray NASAL BID Qty: 1 RF: 0 guaifenesin [Mucus Relief ER] 1,200 MG tablet 1,200 mg PO BID RF: 0 aspirin 81 MG tablet 81 mg PO DAILY RF: 0 meloxicam 7.5 MG tablet 7.5 mg PO DAILY PRN PRN (Reason: arthritis) RF: 0 erythromycin 5 MG/GR Oint...G. 1 applic Left Eye DAILY RF: 0 nitroglycerin 0.4 MG Tab.Subl 0.4 mg PO PRN PRN (Reason: chest pain) RF: 0 Stand Alone Forms: ED Work / School Excuse Primary Care Provider: Susana Ruiz NP Referrals: Susana Ruiz NP, INTRUSION ANALYST-C [Primary Care Provider] - Disposition Disposition: Home, Self Care Discharge Date/Time: 02/27/21 11:37
[2021-02-27 08:45] LABS: Absolute Lymphocyte Count 2.19 X10^3/uL (0.83-4.51); Absolute Neutrophil Count 5.3 X10^3/uL (2.0-7.7); Basophil# 0.12 X10^3/uL; Basophil% 1.4 % (0-1); Eosinophil# 0.17 X10^3/uL; Hematocrit 54.6 % (40-54); Lymphocyte # 2.19 X10^3/ul (0.83-4.51); Lymphocyte % 25.4 % (19-41); Mean Corpuscular Hgb 30.1 pg (27.0-32.0); Mean Corpuscular Volume 91.3 fL (80-94); Monocyte# 0.83 X10^3/uL; Monocyte% 9.6 % (0-10); NRBC Flagged by Analyzer 0 % (0-5); Neutrophil # 5.25 X10^3/uL (2.7-7.7); Neutrophil % 60.9 % (47-70); Platelet Count 293 K/mm3 (150-450); RBC Distribution Width CV 13.3 % (11.6-14.6); RBC Distribution Width SD 45.1 fl (35.1-43.9); Red Blood Count 5.98 M/mm3 (4.6-6.2); White Blood Count 8.6 K/mm3 (4.4-11.0)
[2021-02-27 08:49] LABS: Differential Indicated SCAN CRITERIA MET
[2021-02-27 09:02] LABS: Anion Gap 8 (5-15); BUN 18 mg/dL (7-18); BUN/Creat Ratio 21.7 RATIO (10-20); Calcium,Total 9.8 mg/dL (8.5-10.1); Chloride 106 mmol/L (98-107); Creatinine, Serum 0.83 mg/dL (0.70-1.30); EST Glomerular Filtration Rate 98 mL/min (>60); Est Glom Filt Rate - Afr Amer 118 mL/min (>60); Estimated Creatinine Clearance 76.87 ml/min; Glucose 87 mg/dL (74-106); Potassium 3.9 mmol/L (3.5-5.1); Sodium Level 140 mmol/L (136-145); Troponin-I HS 7 pg/mL (3.0-78.0)
[2021-02-27 10:35] LABS: D-Dimer Quantitative (DVT/PE) 0.39 FEU/ug/m (0.27-0.49)
[2021-02-27 11:03] VITALS: BP 133/76; PULSE 62; RESP 13; O2SAT 95
[2021-02-27 11:14] LABS: Troponin-I HS 6 pg/mL (3.0-78.0)
[2021-02-27 11:33] VITALS: BP 125/88; PULSE 65; RESP 16; O2SAT 98
[2021-02-28 13:37] LABS: Pathologist Review Reviewed
== END 2021-02-27 11:37 | disposition home or self-care (01) ==
PROVIDERS: Emergency Provider Student in an Organized Health Care Education/Training Program; PCP Nurse Practitioner Primary Care
DX: R07.9 Chest pain, unspecified (principal); E11.9 Type 2 diabetes mellitus without complications; E78.5 Hyperlipidemia, unspecified; I10 Essential (primary) hypertension; F17.210 Nicotine dependence, cigarettes, uncomplicated; Z79.84 Long term (current) use of oral hypoglycemic drugs; Z79.899 Other long term (current) drug therapy
CPT/HCPCS: 71045; 80048; 84484; 85025; 85379; 93005; 99285; A4216

== ENCOUNTER 2021-06-12 15:05 | Emergency (ER) | payer MEDICARE, MEDICAID, SELFPAY ==
[2021-06-12 15:14] VITALS: BP 122/62; PULSE 79; RESP 16; TEMP 36.6; O2SAT 99; BMI 37.9
[2021-06-12] MEDS: Dextrose 50%-Water 25 GM/50 ML DISP.SYRIN IV (16:27)
[2021-06-12 17:05] LABS: Bedside Glucose 121 mg/dL (70-110)
[2021-06-12 17:05] LABS: Bedside Glucose 33 mg/dL (70-110)
--- NOTE | 2021-06-12 17:14 | EDS_ITS ---
HPI HPI - Fall History of Present Illness Chief Complaint: Fall Informant: patient Occured/Mechanism Occurred: Today Mechanism/Context: Yes same level fall Pain/Injury Location: Frontal scalp Pain Location: head Current Severity: Gone Worsened by: Nothing Relieved by: D10 Associated Symptoms Associated Symptoms: Positive for Loss of consciousness; Negative for Parasthesias, Weakness, Inability to ambulate and Amnesia Length of loss of consciousness: Unknown Narrative Narrative: Patient presents after a fall that occurred today. EMS reports the patient's blood sugar was 38 on their arrival. EMS administered D10. Patient's blood sugar improved after this. Patient became more awake and alert. Patient did hit his frontal scalp when he fell. Patient denies any pain at the current time. Patient is unsure of his last tetanus. Patient denies any paresthesias or weakness. Patient denies any other injuries. [facility] Medical History Diabetes Hypertension Home Medications albuterol sulfate 2 puff INHALATION Q4H PRN PRN #1 inhaler 01/17/18 [Rx Last Taken Unknown] atorvastatin 20 mg PO QHS 01/17/18 [History Last Taken 05/10/18] fluticasone propionate 1 spray NASAL BID #1 bottle 01/17/18 [Rx Last Taken Unknown] lisinopril 10 mg PO DAILY 01/17/18 [History Last Taken 05/11/18] metformin 500 mg PO DAILY 01/17/18 [History Last Taken 05/11/18] aspirin 81 mg PO DAILY 05/11/18 [History Last Taken 05/11/18] erythromycin 1 applic LEFT EYE DAILY 05/11/18 [History Last Taken 05/10/18] guaifenesin [Mucus Relief ER] 1,200 mg PO BID 05/11/18 [History Last Taken 05/10/18] meloxicam 7.5 mg PO DAILY PRN PRN 05/11/18 [History Last Taken 05/11/18] nitroglycerin 0.4 mg PO PRN PRN 05/11/18 [History Last Taken Unknown] Allergy/AdvReac Type Severity Reaction Status Date / Time morphine Allergy Rash Verified 06/12/21 15:16 clopidogrel [From Plavix] AdvReac Other Verified 06/12/21 15:16 Social History Smoking Status: Current every day smoker tobacco type: cigarettes ROS ROS ED Constitutional Constitutional ED: Denies chills or fever(s) Eyes Eyes: Denies blurry vision or change in vision ENT ENT ED: Denies rhinorrhea or sore throat Cardiovascular Cardiovascular: Denies chest pain or palpitations Respiratory/Chest Respiratory/Chest: Denies cough or dyspnea Gastrointestinal Gastrointestinal: Denies nausea or vomiting Genitourinary Genitourinary ED: Denies dysuria or hematuria Musculoskeletal Musculoskeletal: Denies back pain or neck pain Integumentary Denies abscess or rash Neurologic Neurologic: Denies headache(s) or weakness Allergic/Immunologic Allergic/Immunologic ED: Denies mouth swelling or urticaria EXAM Physical Exam Const Vital Signs: 06/12/21 15:14 06/12/21 16:36 06/12/21 17:34 Temperature 97.8 F Temperature Source Temporal Pulse Rate 79 73 Respiratory Rate 16 16 Respiratory Effort Normal Non-Labored Respiratory Depth Normal Respiratory Pattern Normal Blood Pressure 122/62 H 131/78 H Blood Pressure Mean 82 95 Pulse Ox 99 98 Oxygen Delivery Method Room Air Room Air Room Air Positive well nourished and well developed General Appearance ED: well developed HEENT Reports moist mucous membranes Neck supple and no JVD Resp normal respiratory effort and clear to auscultation bilaterally Cardio regular rate, regular rhythm and no murmurs GI normal to inspection, nondistended, normoactive bowel sounds and non-tender Palpation: soft Back/Spine Cervical Spine: Negative for cervical spine tenderness Extremity normal to inspection General Extremety ED: Negative for edema or tenderness General Extremity: Negative for edema Neuro oriented x3, CN's II-XII intact bilaterally, moves all extremities, no focal motor deficits and no sensory deficits noted Sensorium / Orientation: alert Motor Exam: strength 5/5 throughout Psych mental status grossly normal Skin no rashes or lesions noted Skin Narrative: There is an abrasion over the frontal scalp. There is no active bleeding. There is no bony crepitance or step-off. There is some mild edema. There is no ecchymosis. MDM MDM MDM Narrative Medical decision making narrative: Bacitracin dressing was applied to the scalp abrasion. Patient was given a tetanus booster. Patient was given regular diet tray. Patient's blood sugar improved to 160 on repeat evaluation. Patient feels better. Patient was instructed to continue his normal diet. Patient was instructed to follow-up with his primary care physician in 5 to 7 days. Patient understands and is agreeable with the plan. All questions were answered. Lab Data Attestation: I reviewed the patient's lab results. Labs: Laboratory Results - last 24 hr 06/12/21 06/12/21 06/12/21 16:24 16:59 18:16 POC Glucose 33 L* 121 H 160 H Discharge Plan Triage Chief Complaint: Fall ED Provider: Cesar Goncalves Dx/Rx/DC Orders Clinical Impression: Abrasion of scalp, initial encounter, Hypoglycemia associated with diabetes Instructions: ED Abrasion, ED Head Injury (Adult), ED Hypoglycemia Oral Diabetic ... Prescriptions: No Action metformin 500 MG tablet 500 mg PO DAILY RF: 0 atorvastatin 20 MG tablet 20 mg PO QHS RF: 0 lisinopril 10 MG tablet 10 mg PO DAILY RF: 0 albuterol sulfate 1 INHALER inhaler 2 puff INHALATION Q4H PRN PRN (Reason: Wheezing) Qty: 1 RF: 0 fluticasone propionate 1 SPRAY spray,suspension 1 spray NASAL BID Qty: 1 RF: 0 guaifenesin [Mucus Relief ER] 1,200 MG tablet 1,200 mg PO BID RF: 0 aspirin 81 MG tablet 81 mg PO DAILY RF: 0 meloxicam 7.5 MG tablet 7.5 mg PO DAILY PRN PRN (Reason: arthritis) RF: 0 erythromycin 5 MG/GR Oint...G. 1 applic Left Eye DAILY RF: 0 nitroglycerin 0.4 MG Tab.Subl 0.4 mg PO PRN PRN (Reason: chest pain) RF: 0 Primary Care Provider: Susana uRiz NP Referrals: Susana Ruiz NP, MANAGER W[employer]SE-C [Primary Care Provider] - 3-5 Days Disposition Disposition: Home, Self Care
[2021-06-12] MEDS: Diphth,Pertuss(Acell),Tet Vac 0.5 ML Vial IM (17:30)
[2021-06-12 17:34] VITALS: BP 131/78; PULSE 73; RESP 16; O2SAT 98
[2021-06-12 18:20] LABS: Bedside Glucose 160 mg/dL (70-110)
--- NOTE | 2021-06-21 08:43 | ED.RN ---
ATTEMPTED TO CONTACT PT TO INFORM HIM HE LEFT HIS MEDICATIONS IN THE ER. CELL PHONE NUMBER GOES TO MESSAGE THAT THE SATELLITE COMMUNICATIONS OPERATOR IS NOT IN SERVICE
--- NOTE | 2021-06-21 08:49 | ED.RN ---
CONTACTED PT EMERGENCY CONTACT. SHE NO LONGER HAS CONTACT WITH THE PT.
--- NOTE | 2021-06-21 08:51 | ED.RN ---
MEDICATIONS WILL BE SENT TO [facility] TO HOLD UNTIL PT RETURNS TO PICK THEM UP
== END 2021-06-12 18:52 | disposition home or self-care (01) ==
PROVIDERS: Emergency Provider Emergency Medicine; PCP Nurse Practitioner Primary Care
DX: S00.01XA Abrasion of scalp, initial encounter (principal); Z23 Encounter for immunization; W18.30XA Fall on same level, unspecified, initial encounter; Y93.9 Activity, unspecified; Y92.9 Unspecified place or not applicable; Y99.9 Unspecified external cause status; E11.649 Type 2 diabetes mellitus with hypoglycemia without coma; I10 Essential (primary) hypertension; F17.210 Nicotine dependence, cigarettes, uncomplicated; Z79.84 Long term (current) use of oral hypoglycemic drugs; Z79.82 Long term (current) use of aspirin; Z79.899 Other long term (current) drug therapy
CPT/HCPCS: 82962; 90715; 96374; 99284; A4216